=== PATIENT | female | born 1935 | race Caucasian/White ===

== ENCOUNTER → 2021-08-21 09:38 | Outpatient (CLI) | payer MEDICARE, SELFPAY ==
--- NOTE | ~2021-08-21 | XR_ITS ---
EXAMINATION: XR lumbar spine 2-3V EXAM DATE: 08/21/2021 10:12 INDICATION: diffuse low back pain s/p lifting 1 week ago. TECHNIQUE: Lumber spine frontal, lateral, lateral L5-S1 projections for interpretation. There is no prior study for comparison. FINDINGS: There is burst fracture of the L2 vertebral body, mild loss of its height posteriorly and mild to moderate loss centrally and anteriorly. This is new compared to 2016 x-ray. No evidence of si gnificant retropulsion. Could be acute or have acute component. Otherwise the vertebral body heights are maintained. There is moderate to severe loss of the L4-5 and L5-S1 disc height, moderate at L3-4. Moderate mid and lower lumbar facet arthropathy. Sacrum is unremarkable and unchanged in appearance. IMPRESSION: 1. L2 burst fracture, could have acute or subacute component. 2. Moderate to severe lower lumbar disc disease and moderate lumbar facet arthropathy. Reviewed, dictated and finalized at location . ATION CONTROL SPECIALIST IMPRESSION: 1. L2 burst fracture, could have acute or subacute component. 2. Moderate to severe lower lumbar disc disease and moderate lumbar facet arth ropathy.
== END ==
PROVIDERS: PCP Family Medicine; Visit Provider Family Medicine
DX: M51.36 Other intervertebral disc degeneration, lumbar region (principal); S32.021A Stable burst fracture of second lumbar vertebra, initial encounter for closed fracture; X58.XXXA Exposure to other specified factors, initial encounter
CPT/HCPCS: 72100

== ENCOUNTER → 2021-08-30 07:36 | Outpatient (CLI) | payer MEDICARE, SELFPAY ==
--- NOTE | ~2021-08-30 | MR_ITS ---
EXAMINATION: MR lumbar spine wo con DATE: 08/30/2021 08:24 INDICATION: Closed stable burst fracture of second lumbar vertebra. TECHNIQUE: Magnetic resonance imaging (MRI) of the lumbar spine was performed without intravenous con trast. Sequences included sagittal T2-weighted FSE, sagittal T2-weighted FS FSE, sagittal T1-weighted FSE, and axial T2-weighted FSE. COMPARISON: Lumbar spine MRI 12/11/2015, radiographs 08/21/2021 FINDINGS: There is 4 degrees levocurvature of lumbar spine. There is 5 mm anterolisthesis of L4 on L5 and L5 on S1. There is an old healed insufficiency fracture of S2. There is a burst fracture of supe rior endplate of L2 with 1/5 loss of height, retropulsion of bone 3 mm into central spinal canal, and bone marrow edema. There is severely decreased disc height from L3-L4 through L5-S1 with endplate re modeling. The distal spinal cord signal intensity is normal. The conus medullaris is at L2. The follo wing disc levels are specifically discussed: L1-L2: The disc is bulging. There is moderate right and mild left facet joint osteoarthritis. There i s mild bilateral neural foraminal stenosis. There is mild central canal stenosis. L2-L3: The disc is bulging. There is mild bilateral facet joint osteoarthritis. There is mild bilater al neural foraminal stenosis. There is mild central canal stenosis. L3-L4: The disc is bulging and has an annular fissure. There is severe bilateral facet joint osteoart hritis. There is moderate bilateral neural foraminal stenosis. There is mild central canal stenosis. L4-L5: The disc is bulging and has an annular fissure. There is severe bilateral facet joint osteoart hritis. There is moderate bilateral neural foraminal stenosis. There is mild central canal stenosis. L5-S1: The disc is bulging and has an annular fissure. There is severe bilateral facet joint osteoart hritis. There is moderate bilateral neural foraminal stenosis. There is mild central canal stenosis. IMPRESSION: 1. Subacute L2 burst fracture, stable from 08/21/2021. 2. Severe lumbar spondylosis, slightly worsened from 12/11/2015. Reviewed, dictated and finalized at location A. CTURAL RIGGER
== END ==
DX: S32.021A Stable burst fracture of second lumbar vertebra, initial encounter for closed fracture (principal); M47.817 Spondylosis without myelopathy or radiculopathy, lumbosacral region; M48.07 Spinal stenosis, lumbosacral region
CPT/HCPCS: 72148

== ENCOUNTER 2022-07-08 14:40 | Emergency (ER) | payer MEDICARE, SELFPAY ==
--- NOTE | 2022-07-08 14:46 | ED.FEMALEGU ---
HPI - Female Genitourinary General Chief complaint: Urogenital-Female Stated complaint: UTI Time Seen by Provider: 07/08/22 15:09 Source: patient, RN notes reviewed and old records reviewed Mode of arrival: ambulatory Limitations: no limitations History of Present Illness HPI Narrative: 86 year female presents to the [facility] with pain, frequency and urgency of urination since Friday or Friday. Has been taking cranberry pills. Patient called her primary care provider who insisted that she get seen. Patient denies any abdominal pain, fevers, chest pain or shortness of breath. No urinary symptoms today states that she feels fine. Related Data Home Medications Medication Instructions Recorded Confirmed furosemide 20 mg tablet 20 mg DIRECTED 07/08/22 07/08/22 lisinopril 20 mg tablet 20 mg DIRECTED 07/08/22 07/08/22 Allergies Allergy/AdvReac Type Severity Reaction Status Date / Time No Known Allergies Allergy Mild Unverified 05/21/06 13:05 Review of Systems Review of Systems: All systems reviewed & are unremarkable except as noted in HPI and below Constitutional: Constitutional: Reports no additional constitutional complaints Eyes: Eyes: Reports no additional eye complaints ENT: Reports system reviewed and no additional complaints, except as documented Cardiovascular: Cardiovascular: Reports no additional cardiovascular complaints, Denies chest pain and Denies dyspnea Respiratory: Respiratory: Reports no additional respiratory complaints, Denies chest congestion, Denies cough and Denies dyspnea Gastrointestinal: Gastrointestinal: Reports no additional gastrointestinal complaints, Denies abdominal pain, Denies nausea and Denies vomiting Genitourinary: Genitourinary: Reports as per HPI Musculoskeletal: Musculoskeletal: Reports no additional musculoskeletal complaints Integumentary/Breasts: Skin/Breast: Reports system reviewed and no additional complaints, except as docu Neurologic: Reports system reviewed and no additional complaints, except as documented Psychiatric: Psychiatric: Reports no additional psychiatric complaints Allergic/Immunologic: Allergic/Immunologic: Reports no additional allergic/immunologic complaints [facility] Family History Family History Other Family history of arthritis Family history of mental disorder Hypertension Social History Social History Smoking status: Never smoker Alcohol intake: current Comments At the time of my signature, I reviewed and agree with the nursing past medical, surgical, social, and family history. There is no relevant family history pertinent to the patient complaint. Exam Const: General: cooperative, healthy appearing, comfortable, no acute distress, well developed, alert, average body habitus and well nourished Nutritional Appearance: average body habitus and well nourished Orientation/consciousness: patient oriented x3 Limitations: no limitations HENMT: Head: normal to inspection Ears: hearing grossly normal bilaterally and external ears normal Face/Nose/Sinus: Normal external nose present, Normal nares present, Normal nasal mucous membranes and turbinates present and normal facial exam Face and sinus: normal facial exam Mouth: Yes Normal oral and palatal mucosa present, Yes lip normal and Yes moist mucous membranes Throat: posterior oropharynx normal and uvula midline Eyes: General: appearance normal, both eyes and all related structures Alignment and Position: alignment normal Periorbital: periorbital findings normal Conjunctivae: conjunctivae normal Pupils: Equal, round and reactive pupils present EOM: EOMs intact bilaterally Neck: Neck: normal visual inspection, full ROM, no lymphadenopathy and no meningeal signs Chest: Chest palpation & inspection: normal inspection of the chest Resp: Effort & Inspection: normal re
[2022-07-08 14:47] VITALS: BP 160/78; PULSE 100; RESP 18; TEMP 37; O2SAT 99
== END 2022-07-08 15:21 | disposition home or self-care (01) ==
PROVIDERS: Emergency Provider Nurse Practitioner
DX: R30.0 Dysuria (principal); I10 Essential (primary) hypertension
CPT/HCPCS: 81003; 87086; 87088; 99213; G0463

== ENCOUNTER 2022-11-22 14:06 | Emergency (ER) | payer MEDICARE, SELFPAY ==
--- NOTE | ~2022-11-22 | CT_ITS ---
EXAMINATION: CT cervical spine wo con DATE: 11/22/2022 15:29 INDICATION: Fall. Head and neck injury, possible loss of consciousness. TECHNIQUE: Computed tomography (CT) of the cervical spine was performed without intravenous contrast. Automated exposure control and iterative reconstruction technique were employed. Exam dose: 96.32 m Gy-cm total exam DLP. COMPARISON: None FINDINGS: C1 and C2 are normally aligned and the odontoid process is intact. No fracture or dislocati on or locked facet or prevertebral soft tissue swelling is detected. There is moderate degenerative disc disease and approximately 1.6 mm anterolisthesis at C3-4. There is approximately 1.5 mm anterolisthesis at C4-5. There is severe degenerative disc disease at C5-6 and C6-7, with is associated minimal retrolisthesis at each of these levels. Moderately severe degenerative disc disease at C7-T1 and T1-T2. Moderate degenerative disc disease and mild anterolisthesis at T2-3 and T3-4. There is degenerative change at the apophyseal joints throughout the cervical spine. There is mild un covertebral joint spurring at C3-4 and very prominent uncovertebral joint spurring bilaterally at C5- 6 and C6-7. Levoscoliosis of the cervical spine and dextroscoliosis of the upper thoracic spine. IMPRESSION: Severe cervical spondylosis; no fracture or dislocation or locked facet Reviewed, dictated and finalized at Location A. Reviewed, dictated and finalized at location B.
--- NOTE | ~2022-11-22 | CT_ITS ---
EXAMINATION: CT brain wo con DATE: 11/22/2022 15:29 INDICATION: Fall. Head injury on 11/14/2022. Loss of consciousness. TECHNIQUE: Computed tomography (CT) of the head was performed without intravenous contrast. The mA wa s adjusted according to patient size. Iterative reconstruction technique was employed. Exam dose: 60 5.33 mGy-cm total exam DLP. COMPARISON: None FINDINGS: Prominent bilateral carotid siphon and supraclinoid internal carotid artery calcifications. There is nonspecific diminished attenuation of the cerebral white matter, likely due to chronic smal l vessel ischemic changes. There is central and cortical cerebral and cerebellar atrophy. No intracranial mass lesion or hemorrhage or cerebrovascular accident is evident. No midline shift or mass effect. No subdural or epidural hematoma. Polyps or mucous retention cysts, right maxillary sinus. The paranasal sinuses and mastoid air cells are otherwise unremarkable. No fracture or bone destruction of the cranial vault. IMPRESSION: Cerebral atherosclerosis and chronic small vessel ischemic changes of the cerebral white matter Central and cortical cerebral atrophy No skull fracture or acute intracranial finding Reviewed, dictated and finalized at Location A. Reviewed, dictated and finalized at location B.
[2022-11-22 14:15] VITALS: BP 190/95; PULSE 122; RESP 18; TEMP 37.2; O2SAT 100
--- NOTE | 2022-11-22 15:17 | ED.FALL ---
HPI - Fall General Chief Complaint: Fall Stated Complaint: fall Time Seen by Provider: 11/22/22 15:12 History of Present Illness HPI Narrative: Patient presenting here after she fell a week ago, she states that she did hit her head, and she is overall feeling better, except that sometimes when she tilts her head back too far she will get very dizzy. No focal numbness or weakness, difficulty with speech or ambulation. Tried to follow-up with her primary care doctor was sent her to the ER. Related Data Home Medications Medication Instructions Recorded Confirmed furosemide 20 mg tablet 20 mg DIRECTED 07/08/22 07/08/22 lisinopril 20 mg tablet 20 mg DIRECTED 07/08/22 07/08/22 Allergies Allergy/AdvReac Type Severity Reaction Status Date / Time No Known Allergies Allergy Mild Unverified 05/21/06 13:05 Review of Systems Review of Systems: CONST: No fever. HEENT: No sore throat C/V: No chest pain RESP: No cough GI: No nausea : No dysuria. M/S: No joint pain. SKIN: No rash. NEURO: [No headache or focal numbness or weakness] PSYCH: [No depression] ON LICENSE OF [facility] Family History Family History Other Family history of arthritis Family history of mental disorder Hypertension Social History Social History Smoking status: Never smoker Alcohol intake: current Exam Narrative: EXAMINATION OF ORGAN SYSTEMS/BODY AREAS: Constitutional: Vital signs per nursing GENERAL:[No acute distress, non-toxic appearing.] HEAD: Normal with no signs of head trauma. NECK: No C spine tenderness EYES: EOMI, conjunctiva normal ENT: Hearing grossly intact LUNGS: Nonlabored breathing. HEART: [Regular rate and rhythm] ABD: [Soft], [nontender to palpation] EXT: Normal range of motion SKIN: [No rashes or lesions.] NEURO: [Alert and oriented x 3. No gross focal sensory or strength deficits.] Ambulating with normal steady gait PSYCH: Normal affect Course Vital Signs Vital signs: Vital Signs Temperature 99.0 F 11/22/22 14:15 Pulse Rate 122 H 11/22/22 14:15 Respiratory Rate 18 04/21/23 14:15 Blood Pressure 190/95 H 11/22/22 14:15 Pulse Oximetry 100 11/22/22 14:15 Oxygen Delivery Room Air 11/22/22 14:15 Temperature 99.0 F 11/22/22 14:15 Pulse Rate 103 H 11/22/22 16:15 Respiratory Rate 18 11/22/22 16:15 Blood Pressure 190/95 H 11/22/22 14:15 Pulse Oximetry 97 11/22/22 16:15 Oxygen Delivery Room Air 11/22/22 14:15 MDM - Fall MDM Narrative Medical decision making narrative: 87yoF p/w fall 1wk ago, sent here for scans by her PCP; some persistent vertigo though she has had vertigo in the past. Initially tachycardic and hypertensive here but she states that she always has a lot of anxiety when she is at a doctor's office. Normal neurologic exam here, I have low concern for any acute abnormality as it has been a week since the fall however I will obtain a CT head and C-spine for confirmation. These are unremarkable for any acute abnormality. She has no focal numbness or weakness or other focal neurologic signs, her repeat heart rate is 102 with sinus rhythm on telemetry, BP blood pressure 185/102 without any signs of hypertensive emergency. She is excited to go home at this time, I will give her follow-up to neurology given her history of chronic vertigo, she declined any medications as she has had a bad experience with dizzy spells in the past. Strict return precautions provided. Discharge Plan Discharge Clinical Impression: Concussion, Head trauma Patient Disposition: Home, Self-Care Condition: Improved Instructions: Antibiotic Form, Concussion (ED), Head Injury (ED) Additional Instructions: Please follow up with your doctor and the neurologist; you can always return for any further issues. Prescriptions: No Action lisinopril 20 mg tablet 20 mg DIRECTED
[2022-11-22 16:15] VITALS: PULSE 103; RESP 18; O2SAT 97
== END 2022-11-22 16:16 | disposition home or self-care (01) ==
PROVIDERS: Emergency Provider Emergency Medicine; PCP Nurse Practitioner Family
DX: S06.0XAA Concussion with loss of consciousness status unknown, initial encounter (principal); W19.XXXA Unspecified fall, initial encounter
CPT/HCPCS: 70450; 72125; 99284

== ENCOUNTER 2023-10-30 08:53 | Emergency (ER) | payer MEDICARE, SELFPAY ==
[2023-10-30] VITALS (9 sets, daily range): BP systolic 146–174; BP diastolic 80–93; PULSE 94–117; RESP 16–23; TEMP 37.2; O2SAT 83–99
--- NOTE | ~2023-10-30 | XR_ITS ---
EXAMINATION: XR chest 1V portable INDICATION: Shortness of breath TECHNIQUE: Portable AP chest at 1041 hours COMPARISON: None available FINDINGS: The lungs are free of acute opacities. No pleural effusion or pneumothorax. The cardiomedia stinal silhouette is normal. Vertebroplasty changes noted at L2. IMPRESSION: 1. No acute cardiopulmonary abnormality. Reviewed, dictated and finalized at location F.
--- NOTE | ~2023-10-30 | CT_ITS ---
EXAMINATION: CT abdomen pelvis w con DATE: 10/30/2023 11:02 INDICATION: Epigastric abdominal pain. TECHNIQUE: Computed tomography (CT) of the abdomen and pelvis was performed with 100 mL Omnipaque 350 intravenous contrast. Automated exposure control and iterative reconstruction technique were employe d. The dose-length product was 179.89 mGy-cm. COMPARISON: Pelvis CT 12/10/15 FINDINGS: The visualized portions of the lung bases demonstrate mild atelectasis. No pleural effusion . The heart size is normal. No pericardial effusion. The liver, gallbladder, spleen, pancreas, adrena l glands, are normal. There are cysts in the kidneys measuring up to 1.6 cm on the right. Aortic athe rosclerosis is noted. There are no dilated loops of bowel. The appendix is not visualized. There is a large volume of stool in the colon. There are no pathologically enlarged lymph nodes. There is no fr ee intraperitoneal fluid. There is an old healed fracture of left parasymphyseal pubis. There is a ch ronic burst fracture of L2 with changes of vertebroplasty. There is severe lumbar spondylosis. There is an old fracture of S2 segment. IMPRESSION: 1. No etiology for the patient's symptoms. Reviewed, dictated and finalized at location A.
--- NOTE | 2023-10-30 09:00 | ECG_ITS ---
Measurements Intervals [place] Rate: 99 P: 53 SD: 180 QRS: 36 QRSD: 85 T: 26 QT: 329 QTc: 424 Interpretive Statements SINUS RHYTHM WITH SINUS ARRHYTHMIA MINIMAL Q WAVES- INFERIOR LEADS BASELINE ARTIFACT- I, II, III, AVL BORDERLINE ECG NO PREVIOUS ECG AVAILABLE FOR COMPARISON Electronically Signed On 10-30-2023 9:37:01 CDT by Lon Turner D.O.
[2023-10-30 09:28] LABS: Basophils Percent Auto 0.4 % (0.2-1.2); Eosinophils Percent Auto 0.3 % (0-4.4); Hematocrit 34.5 % (37.0-47.0); Hemoglobin 11.7 g/dL (12.0-15.0); Immature Granulocyte Absolute 0.04 K/mm3 (0.00-0.031); Immature Granulocyte Percent A 0.5 % (0-0.5); Lymphocytes Absolute Auto 0.48 K/mm3 (0.9-3.2); Lymphocytes Percent Auto 6.4 % (18.3-44.2); Mean Corpuscular HGB Conc 33.9 g/dl (32-36); Mean Corpuscular Hemoglobin 29.6 pg (26-34); Mean Corpuscular Volume 87.3 fl (80-100); Monocytes Absolute Auto 0.6 K/mm3 (0.1-0.6); Monocytes Percent Auto 8.6 % (2.6-8.5); Neutrophils Absolute Auto 6.3 K/mm3 (1.3-6.7); Neutrophils Percent Auto 83.8 % (45.5-73.1); Platelet Count Result 193 k/mm3 (150-375); Red Blood Count 3.95 M/mm3 (4.2-5.4); White Blood Count 7.5 K/mm3 (4.5-10.0)
[2023-10-30 09:38] LABS: Alanine Aminotransferase 23 U/L (6-35); Albumin Level 4.3 g/dL (3.5-5.1); Alkaline Phosphatase 72 U/L (38-126); Anion Gap 6 mmol/L (4-12); Aspartate Amino Transferase 35 U/L (14-36); Bilirubin,Total 0.6 mg/dL (0.2-1.3); Blood Urea Nitrogen 19 mg/dL (7-17); Calcium 9.5 mg/dL (8.4-10.2); Carbon Dioxide 26 mmol/L (22-30); Chloride 97 mmol/L (98-107); Estimated Glomerular Filt Rate 47; Glucose 114 mg/dL (65-110); Lipase 45 U/L (23-300); Potassium 3.6 mmol/L (3.4-5.0); Sodium 129 mmol/L (137-145)
--- NOTE | 2023-10-30 10:27 | ED.ABDPAIN ---
HPI - Abdominal Pain General Chief Complaint: Abdominal Pain Stated Complaint: left shoulder pain since , upper abd pain Time Seen by Provider: 10/30/23 10:25 Source: patient and family (Daughter Viviana) Mode of arrival: ambulatory Limitations: no limitations History of Present Illness HPI narrative: 88-year-old female presents with upper abdominal pain. Patient points across her upper abdomen from right upper quadrant epigastrium to left upper quadrant. She states it radiates to her back. This has never happened before. She was also having some left shoulder pain starting on Friday. She is experiencing some pain with inspiration. Initial triage complaint noted that she was having some intermittent shortness of breath but patient denies this when I ask her explicitly.. She did have a brief syncopal episode last night when going to the bathroom. She had gone to the toilet and when she stood she lost muscle tone and consciousness briefly. She awoke and was back to baseline and went back to bed. No chest pain. She did get her shingles shot on Friday. Related Data Home Medications Medication Instructions Recorded Confirmed furosemide 20 mg tablet 20 mg DIRECTED 07/08/22 07/08/22 lisinopril 20 mg tablet 20 mg DIRECTED 07/08/22 07/08/22 Allergies Allergy/AdvReac Type Severity Reaction Status Date / Time No Known Allergies Allergy Mild Unverified 05/21/06 13:05 [facility] Surgical History Surgical History (Updated 10/31/23 @ 18:12 by Kindra Cowan MD) History of appendectomy History of hysterectomy Family History Family History Other Family history of arthritis Family history of mental disorder Hypertension Social History Social History Smoking status: Never smoker Alcohol intake: current Exam Narrative: GENERAL: Well-appearing, well-nourished, and in no acute distress. HEAD: Normocephalic, atraumatic. EYES: Non injected, non icteric ENT: Nares clear, no rhinorrhea or epistaxis. NECK: Supple. CHEST: Speaking in full sentences. No respiratory distress. Non labored. HEART: Regular rate and rhythm. . ABDOMEN: Soft, nondistended. Non tender to palpation. No rigidity/guarding. Cardoza sign negative. EXTREMITIES: Normal range of motion. No edema. SKIN: Warm, dry, no rash. NEURO: No focal deficits. Alert and oriented. PSYCH: Normal mood and affect. Course Vital Signs Vital signs: Vital Signs Temperature 98.9 F 10/30/23 08:59 Pulse Rate 94 10/30/23 08:59 Respiratory Rate 16 10/30/23 08:59 Blood Pressure 171/83 H 10/30/23 08:59 Pulse Oximetry 96 10/30/23 08:59 Temperature 98.9 F 10/30/23 08:59 Pulse Rate 117 H 10/30/23 11:06 Respiratory Rate 18 10/30/23 11:06 Blood Pressure 174/87 H 10/30/23 11:06 Pulse Oximetry 93 10/30/23 11:06 MDM - Abdominal Pain MDM Narrative Medical decision making narrative: Patient presents with upper abdominal pain. She points to right upper quadrant, epigastrium, left upper quadrant. She notes it radiates to her back. Also had a syncopal episode last night after going to the bathroom when she stood up from the toilet. Brief loss of consciousness and muscle tone with return to baseline. In the ED she is afebrile with vital signs that show hypertension. Work up largely unremarkable. No comment in impression but rest of interpretation does note stool burden and on my independent interpretation I do appreciate his stool burden especially in the transverse colon which correlates with patient's complaints. We did discuss bowel regimen and the importance of a stool softener as well as occasionally a laxative for episodes of constipation and the differences between the 2. Patient her daughter verifies understanding. Patient is otherwise low risk based on Wirt syncope rule and we discussed this
[2023-10-30] MEDS: MORPHINE SULFATE (*CRX) 2 MG/ML INJ IV PUSH (10:49)
[2023-10-30] MEDS: SODIUM CHLORIDE 0.9% IV 1,000 ML 999 ML IV CONT (10:50)
[2023-10-30 11:07] LABS: Add Urine Microscopic? NO; Color Urine Yellow (Yellow)
[2023-10-30 11:08] LABS: Appearance Urine Clear (Clear); Bilirubin Urine Negative (Negative); Blood Urine Negative (Negative); Glucose Urine UA Negative (Negative); Ketones Urine 1+ mg/dL (Negative); Leukocyte Esterase Ur Negative LEU/UL (Negative); Nitrate Urine Negative (Negative); Protein Urine Negative (Negative); Urobilinogen Urine 0.2 mg/dL (<2.0); pH Urine 5.5 (5.0-9.0)
[2023-10-30 11:31] LABS: Troponin I < 0.012 ng/mL (0.000-0.034)
[2023-10-30] MEDS: ACETAMINOPHEN 325 MG TABLET 650 MG PO (12:56)
[2023-10-30] MEDS: DICYCLOMINE HCL 10 MG CAPSULE PO (12:57)
[2023-10-30] MEDS: PSYLLIUM POWDER PACKET 1 PACKET PO (12:57)
== END 2023-10-30 13:13 | disposition home or self-care (01) ==
PROVIDERS: Emergency Provider Student in an Organized Health Care Education/Training Program; PCP Nurse Practitioner Family
DX: K59.00 Constipation, unspecified (principal); D64.9 Anemia, unspecified; N17.9 Acute kidney failure, unspecified; E87.1 Hypo-osmolality and hyponatremia; R55 Syncope and collapse; Z90.710 Acquired absence of both cervix and uterus
CPT/HCPCS: 36415; 71045; 74177; 80053; 81003; 83690; 84484; 85025; 93005; 96361; 96374; 99284; A9270; J2270; J7030; Q9967

== ENCOUNTER 2023-11-03 08:37 | Inpatient (IN) | payer MEDICARE, SELFPAY ==
[2023-11-03] VITALS (34 sets, daily range): BP systolic 116–175; BP diastolic 68–97; PULSE 93–126; RESP 13–26; TEMP 36.6–36.7; O2SAT 91–100; BMI 22.4
--- NOTE | ~2023-11-03 | CT_ITS ---
Clinical Indication: Chest and abdominal pain CT Scan of the Chest, Abdomen, and Pelvis with Contrast: Technique: Contiguous sections were acquired throughout the chest, abdomen, and pelvis after intraven ous administration of 100 cc of Omnipaque 350. Dose reduction technique was used on this scan by stefanie stafford automated exposure control and iterative reconstruction technique. The dose-length product (DL P) was 302.81 mGy-cm. COMPARISON: 10/30/2023 Findings: There is no evidence of any significant mediastinal, hilar or axillary lymphadenopathy. There is no a ortic aneurysm or dissection. No pulmonary embolus seen. There are atherosclerotic calcifications of the aorta.. There is no evidence of pleural or pericardial effusion. The lungs are clear. No pulmonary nodules or infiltrates are noted. The liver, spleen, pancreas, gallbladder, adrenals and kidneys are within normal limits. No evidence of aortic aneurysm. No lymphadenopathy. No bowel obstruction or bowel wall thickening. There is no evidence to suggest acute appendicitis. Urinary bladder is unremarkable. No pelvic mass seen. No ascites. Compression fracture of T8 present. There is vertebroplasty at L2. Impression: T8 compression fracture, somewhat age indeterminate. No other significant/acute abnormality seen. Reviewed, dictated and finalized at [facility]. Impression: T8 compression fracture, somewhat age indeterminate. No other significant/acute abnormality seen.
--- NOTE | ~2023-11-03 | XR_ITS ---
EXAMINATION: XR chest 1V portable DATE: 11/03/2023 12:31 INDICATION: Left shoulder and back pain. TECHNIQUE: A single frontal view of the chest was obtained. COMPARISON: Chest single view 10/30/2023 FINDINGS: There is mild atelectasis in left lower lung zone. No pleural effusion or pneumothorax. The heart size is normal. IMPRESSION: 1. Mild atelectasis in left lower lung zone. Reviewed, dictated and finalized at location A.
--- NOTE | 2023-11-03 12:00 | ED.BACK ---
HPI - Back Pain/Injury General Chief Complaint: Back Pain/Injury Stated Complaint: upper back pain, pain w/ inspiration Time Seen by Provider: 11/03/23 11:57 Source: patient and family ( Son) Mode of arrival: ambulatory Limitations: no limitations History of Present Illness HPI Narrative: patient presents with pain in multiple areas. She has complaining of pain throughout her back and left shoulder as well as to her left buttock. She is also having pain with inspiration. She continues to have pain across her upper abdomen. Of note patient was seen by myself earlier in the week for similar symptoms although she states that some are new and or worsening. She was diagnosed with constipation at that time based on stool burden seen on CT abdomen pelvis. She states she continues to have pain but feels less distended there and has had 3 bowel movements since including 1 today. She said they have been good. No fevers. She continues to feel nauseated. No chest pain. No paresthesias in extremities. patient's symptoms have been going on since nearly a week ago, on Friday which she received her shingles vaccine. Related Data Home Medications Medication Instructions Recorded Confirmed furosemide 20 mg tablet 20 mg PO DAILY 07/08/22 11/03/23 lisinopril 20 mg tablet 20 mg PO DAILY 07/08/22 11/03/23 cholecalciferol (vitamin D3) 25 1,000 unit PO DAILY 11/03/23 11/03/23 mcg (1,000 unit) capsule clobetasol 0.05 % topical ointment 1 applic topical BID PRN maceration 11/03/23 11/03/23 coQ10 (ubiquinol) 100 mg capsule 100 mg PO DAILY 11/03/23 11/03/23 multivitamin with minerals-folic 1 tablet PO DAILY 11/03/23 11/03/23 acid 0.4 mg tablet (One-A-Day Women's 50 Plus) polyethylene glycol 1 ea miscellaneous DAILY 11/03/23 11/03/23 Allergies Allergy/AdvReac Type Severity Reaction Status Date / Time grass pollen Allergy Sneezing Verified 11/03/23 17:58 house dust Allergy Sneezing Verified 11/03/23 17:58 codeine AdvReac Intermediate Confusion Verified 11/03/23 17:58 [facility] Past Medical History Medical History (Updated 11/03/23 @ 23:00 by Mary Kim PA-C) Hyperlipidemia Hypertension Osteoarthritis Uterine cancer Surgical History Surgical History (Updated 11/03/23 @ 22:57 by Mary Kim PA-C) History of appendectomy History of cataract extraction History of colonoscopy with polypectomy History of hysterectomy Family History Family History Other Family history of arthritis Family history of mental disorder Hypertension Social History Social History (Updated 11/03/23 @ 22:58 by Mary Kim PA-C) Social History: Surrogate medical decision maker: Zahraa Oneill, daughter. Code status: Full code. Smoking status: Never smoker Alcohol intake: never Substance use: never Do You Feel Safe in your Home?: Yes Lack of Transportation: No Lack of Food: Never True Current Housing: I Have Housing Concerned About Future Housing: No Difficulty Paying Gas/Electric Bills: No Difficulty Paying for Meds: No Currently Unemployed: No Education: High School Diploma/GED Difficulty w/ Childcare or Family Care: No Additional living arrangements comments: The patient lives in her own home with her dog Adriana. [place] [address] [place] Additional occupation/education comments: Retired. Spiritual care concerns: No Exam Narrative: GENERAL: Well-appearing, well-nourished, in occasional acute distress. HEAD: Normocephalic, atraumatic. EYES: Non injected, non icteric ENT: Nares clear, no rhinorrhea or epistaxis. NECK: Supple. CHEST: Speaking in full sentences. No respiratory distress. HEART: Regular rate and rhythm at the time of exam . ABDOMEN: Soft, nondistended. Non tender to palpation. EXTREMITIES: Normal range of motion. No edema. Straight leg test negative bilaterally. SKIN: Warm, dry, no rash. NEURO: No focal defi
--- NOTE | 2023-11-03 12:13 | ECG_ITS ---
Measurements Intervals [place] Rate: 98 P: 44 AR: 180 QRS: 37 QRSD: 87 T: 20 QT: 340 QTc: 434 Interpretive Statements SINUS RHYTHM WITH SINUS ARRHYTHMIA NORMAL ELECTROCARDIOGRAM COMPARED TO ECG 10/30/2023 09:13:27 NO SIGNIFICANT CHANGES Electronically Signed On 11-03-2023 13:20:14 CDT by Luis Yañez M.D.
[2023-11-03] MEDS: MORPHINE SULFATE (*CRX) 2 MG/ML INJ IV PUSH (12:35)
[2023-11-03] MEDS: ONDANSETRON INJ 4 MG/2 ML VIAL IV PUSH (12:35)
[2023-11-03 12:44] LABS: Basophils Percent Auto 0.5 % (0.2-1.2); Eosinophils Percent Auto 0.4 % (0-4.4); Hematocrit 34.2 % (37.0-47.0); Hemoglobin 11.6 g/dL (12.0-15.0); Immature Granulocyte Absolute 0.06 K/mm3 (0.00-0.031); Immature Granulocyte Percent A 0.8 % (0-0.5); Lymphocytes Absolute Auto 0.93 K/mm3 (0.9-3.2); Lymphocytes Percent Auto 12.6 % (18.3-44.2); Mean Corpuscular HGB Conc 33.9 g/dl (32-36); Mean Corpuscular Hemoglobin 28.9 pg (26-34); Mean Corpuscular Volume 85.1 fl (80-100); Mean Platelet Volume 7.9 fl (7.4-10.4); Monocytes Absolute Auto 0.7 K/mm3 (0.1-0.6); Monocytes Percent Auto 9.9 % (2.6-8.5); Neutrophils Absolute Auto 5.6 K/mm3 (1.3-6.7); Neutrophils Percent Auto 75.8 % (45.5-73.1); Platelet Count Result 273 k/mm3 (150-375); Red Blood Count 4.02 M/mm3 (4.2-5.4); Red Cell Distribution Width 12.4 % (11.5-14.5); White Blood Count 7.4 K/mm3 (4.5-10.0)
[2023-11-03 12:53] LABS: Alanine Aminotransferase 20 U/L (6-35); Alkaline Phosphatase 67 U/L (38-126); Anion Gap 6 mmol/L (4-12); Aspartate Amino Transferase 32 U/L (14-36); Bilirubin,Total 0.7 mg/dL (0.2-1.3); Blood Urea Nitrogen 15 mg/dL (7-17); Calcium 9.5 mg/dL (8.4-10.2); Carbon Dioxide 28 mmol/L (22-30); Chloride 93 mmol/L (98-107); Creatine Kinase 57 U/L (30-135); Estimated Glomerular Filt Rate 59; Glucose 108 mg/dL (65-110); Magnesium 2.1 mg/dL (1.6-2.3); Potassium 3.3 mmol/L (3.4-5.0); Sodium 127 mmol/L (137-145)
[2023-11-03 13:08] LABS: D Dimer 2.79 ug/mL (<0.48)
[2023-11-03 13:38] LABS: Appearance Urine Clear (Clear); Bilirubin Urine Negative (Negative); Blood Urine Negative (Negative); Color Urine Yellow (Yellow); Glucose Urine UA Negative (Negative); Ketones Urine Negative (Negative); Leukocyte Esterase Ur Negative LEU/UL (Negative); Nitrate Urine Negative (Negative); Protein Urine Negative (Negative); Specific Grav Ur 1.013 (1.001-1.035); Urobilinogen Urine 0.2 mg/dL (<2.0)
[2023-11-03 13:51] LABS: Add Urine Microscopic? NO
[2023-11-03 14:12] LABS: Influenza A QL RT-PCR Negative (Negative); Influenza B QL RT-PCR Negative (Negative); RSV RNA, RT-PCR Negative (Negative); SARS-CoV-2 RNA PCR Negative (Negative)
[2023-11-03] MEDS: POTASSIUM BICARBONATE 25 MEQ TABEF PO (14:30)
[2023-11-03 14:32] LABS: Creatinine Urine 27.2 mg/dL
[2023-11-03 14:33] LABS: Sodium Urine Random 36 meq/L
--- NOTE | 2023-11-03 15:59 | PM.IMHP ---
H&P: HPI History of Present Illness Date/Time: 11/03/23 18:45 Chief Complaint: Back pain. Narrative: This is a very pleasant 88-year-old female with history of compression fracture, osteoarthritis, hypertension, and hyperlipidemia who presented to the emergency department for evaluation of back pain. The patient provides the following history. Last Friday she got the shingles vaccination and the following morning she woke up with chills, fever, and body aches. Since that time she has had ?a deep and aching pain? diffusely throughout her lower mid back and radiating around the ribs in the front. The pain is worse with movement and deep inspiration and sometimes takes her breath away and it sounds like she had a brief syncopal episode related to pain last week. She has been taking acetaminophen and ibuprofen at home with some relief. She has also been using a heating pad. This does not feel like her arthritic pain whatsoever. She denies recent fall, injury, current fever, headache, chest pain, pleuritic pain, cough, vomiting, diarrhea, and dysuria. No known history of gallbladder disease, pancreatitis, or peptic ulcers. She was seen in the ED for the symptoms on 10/30/2023 at which time her workup was largely unremarkable. She was discharged home for follow-up with her primary care provider. Today she called to make an appointment but due to ongoing symptoms she was instead referred back to the emergency department. In the ED: She was afebrile on arrival with stable vital signs. Labs were significant for sodium of 127, chloride 93, potassium 3.3, BUN 15, creatinine 0.90, WBC 7.4, hemoglobin 11.6. Urinalysis was unremarkable. She tested negative for influenza, RSV, and COVID. CT of the chest, abdomen, and pelvis showed T8 compression fracture, some a age-indeterminate, but no other significant abnormalities. She is being admitted in this setting for further workup. Review of Systems Review of Systems: Twelve systems were reviewed and are negative except for as per HPI. [facility] Past Medical History Medical History (Updated 11/03/23 @ 23:00 by Mary Kim PA-C) Hyperlipidemia Hypertension Osteoarthritis Uterine cancer Surgical History Surgical History (Updated 11/03/23 @ 22:57 by Mary Kim PA-C) History of appendectomy History of cataract extraction History of colonoscopy with polypectomy History of hysterectomy Family History Family History Other Family history of arthritis Family history of mental disorder Hypertension Social History Social History (Updated 11/03/23 @ 22:58 by Mary Kim PA-C) Social History: Surrogate medical decision maker: Zahraa Oneill, daughter. Code status: Full code. Smoking status: Never smoker Alcohol intake: never Substance use: never Do You Feel Safe in your Home?: Yes Lack of Transportation: No Lack of Food: Never True Current Housing: I Have Housing Concerned About Future Housing: No Difficulty Paying Gas/Electric Bills: No Difficulty Paying for Meds: No Currently Unemployed: No Education: High School Diploma/GED Difficulty w/ Childcare or Family Care: No Additional living arrangements comments: The patient lives in her own home with her dog Adriana. [place] [address] Additional occupation/education comments: Retired. Spiritual care concerns: No Meds Home Medications and Allergies Home Medications Medication Instructions Recorded Confirmed Type furosemide 20 mg tablet 20 mg PO DAILY 07/08/22 11/03/23 History lisinopril 20 mg tablet 20 mg PO DAILY 07/08/22 11/03/23 History psyllium husk 0.4 gram capsule 0.4 g PO DAILY PRN constipation 30 10/30/23 11/03/23 Rx (Metamucil) days #30 caps cholecalciferol (vitamin D3) 25 1,000 unit PO DAILY 11/03/23 11/03/23 History mcg (1,000 unit) capsule clobetasol 0.05 % topical ointment 1 applic topical BID PRN macerati
[2023-11-03] MEDS: ACETAMINOPHEN 325 MG TABLET 650 MG PO ×2 (17:12→21:10)
[2023-11-03] MEDS: IBUPROFEN 600 MG TABLET PO (22:56)
[2023-11-03 23:20] LABS: Lipase 54 U/L (23-300); Magnesium 2.2 mg/dL (1.6-2.3)
[2023-11-03] MEDS: SODIUM CHLORIDE 0.9% IV 1,000 ML 80 ML IV CONT (23:44)
[2023-11-04] VITALS (7 sets, daily range): BP systolic 123–174; BP diastolic 64–88; PULSE 75–97; RESP 16–18; TEMP 36.6–37.2; O2SAT 95–96
[2023-11-04 00:14] LABS: Creatinine Urine 149.6 mg/dL; Urea Random Urine 436 MG/DL
[2023-11-04 00:24] LABS: Sodium Urine Random 11 meq/L
[2023-11-04 01:11] LABS: Anion Gap 4 mmol/L (4-12); Blood Urea Nitrogen 21 mg/dL (7-17); Calcium 9.5 mg/dL (8.4-10.2); Carbon Dioxide 30 mmol/L (22-30); Chloride 95 mmol/L (98-107); Estimated Glomerular Filt Rate 42; Glucose 110 mg/dL (65-110); Potassium 3.9 mmol/L (3.4-5.0); Sodium 129 mmol/L (137-145)
[2023-11-04] MEDS: ACETAMINOPHEN 325 MG TABLET 650 MG PO ×2 (06:46→18:23)
[2023-11-04 09:05] LABS: Hematocrit 32.1 % (37.0-47.0); Hemoglobin 11.1 g/dL (12.0-15.0); Mean Corpuscular HGB Conc 34.6 g/dl (32-36); Mean Corpuscular Hemoglobin 29.6 pg (26-34); Mean Corpuscular Volume 85.6 fl (80-100); Mean Platelet Volume 7.8 fl (7.4-10.4); Platelet Count Result 275 k/mm3 (150-375); Red Blood Count 3.75 M/mm3 (4.2-5.4); Red Cell Distribution Width 12.8 % (11.5-14.5); White Blood Count 6.4 K/mm3 (4.5-10.0)
[2023-11-04 09:19] LABS: Albumin Level 3.7 g/dL (3.5-5.1); Anion Gap 4 mmol/L (4-12); Blood Urea Nitrogen 16 mg/dL (7-17); Carbon Dioxide 29 mmol/L (22-30); Chloride 98 mmol/L (98-107); Estimated Glomerular Filt Rate 59; Glucose 134 mg/dL (65-110); Magnesium 2.2 mg/dL (1.6-2.3); Potassium 3.7 mmol/L (3.4-5.0); Sodium 131 mmol/L (137-145)
[2023-11-04] MEDS: polyethylene glycoL 3350 17 GM POWD.PACK PO (09:21)
[2023-11-04] MEDS: THERAPEUTIC MULTIVITAMINS/MINERALS TAB (*BKC) 1 TABLET PO (09:21)
[2023-11-04] MEDS: CHOLECALCIFEROL 1,000 UNITS TABLET 1000 UNITS PO (09:22)
[2023-11-04] MEDS: lisinopriL 20 MG TABLET PO (09:22)
[2023-11-04] MEDS: FUROSEMIDE 20 MG TABLET PO (11:23)
--- NOTE | 2023-11-04 11:26 | PM.IMPN ---
Progress Note: A&P Assessment and Plan (1) Compression fracture of T8 vertebra: Qualifiers: Encounter type: sequela Qualified Code(s): S22.060S - Wedge compression fracture of T7-T8 vertebra, sequela Code(s): S22.060A - Wedge compression fracture of T7-T8 vertebra, initial encounter for closed fracture Status: Acute Assessment and Plan: Consult Neurosurgery. Pain control. 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 She did receive some gentle IV hydration saline is completed. Recheck labs in the morning. Patient may need fluid restriction or salt tabs depending on trajectory. (3) Hypokalemia: Code(s): E87.6 - Hypokalemia Status: Acute Assessment and Plan: Official potassium 3.3 on admission, was replaced and is 3.7 today. (4) Hypertension: Code(s): I10 - Essential (primary) hypertension Status: Acute Assessment and Plan: Chronic hypertension, continue home home antihypertensives. Blood pressure was elevated this morning and has responded after medication. (5) Osteoarthritis: Code(s): M19.90 - Unspecified osteoarthritis, unspecified site Status: Acute Time Spent With Patient Time with patient: 25 - 35 minutes Subjective Date/time seen: 11/04/23 11:26 Interval history: Patient reports that she has mid back pain radiating to the left side of the abdomen as well as down the leg. She had previously had constipation that had started to subside. Family reports that patient had a syncopal episode and was found on the bathroom floor about a week ago. It is suspected that she suffered a T8 fracture at that time and has been dealing with pain ever since. She had previously come to the emergency department been diagnosed with constipation and sent back home. She returned to the ER yesterday with worsening pain found hyponatremia as low as 127 not previously worked up. Today sodium is 131. Requested Neurosurgery consult due to apparent new T8 fracture. Review of Systems Review of Systems: All systems reviewed & are unremarkable except as noted in HPI and below Exam Narrative: General: Well-developed, nontoxic-appearing elderly female in the semi-Layton position in bed. Weight: 47 kg. BMI: 22.4. HEENT: Normocephalic, atraumatic. PERRL, EOMI. Sclera anicteric. Tacky mucous membranes. Neck: Supple. Respiratory: Lungs are clear to auscultation bilaterally. Cardiovascular: Regular rate and rhythm with S1-S2. Soft systolic murmur at the upper sternal border. Chest: Mild tenderness to palpation over the left lower ribs anteriorly. Gastrointestinal: Abdomen is soft and nondistended with positive bowel sounds. Tender to deeper palpation in the left upper quadrant. No guarding or rebound tenderness. Skin: Warm and dry. No rash or lesions noted. Spine: No midline vertebral tenderness. Some tenderness to palpation over the right mid/lateral back. Extremities: No cyanosis, clubbing, or edema. Radial and pedal pulses intact. Neurological: Alert and oriented. Cranial nerves 2-12 are grossly intact. No gross focal deficits to casual conversation. Psychiatric: Pleasant and cooperative with normal mood and affect. Judgment and insight intact. Objective Data Vital Signs Vital Signs: Vital Signs - 24 hr 11/03/23 11:30 11/03/23 11:45 11/03/23 12:00 Temperature Pulse Rate 100 93 95 Respiratory Rate 18 21 H 26 H Blood Pressure Pulse Oximetry 98 98 97 Oxygen Delivery 11/03/23 12:15 11/03/23 12:30 11/03/23 12:36 Temperature Pulse Rate 97 102 H 96 Respiratory Rate 21 H 17 20 Blood Pressure 175/94 H Pulse Oximetry 96 98 95 Oxygen Delivery 11/03/23 12:45 11/03/23 12:46 11/03/23 13:00 Temperature Pulse Rate 97 98 96 Respiratory Rate 13 15 14 Blood Pressure 153/81 H Puls
--- NOTE | 2023-11-04 15:06 | PCCCNOTE ---
On 11/04/23, the student, Almaz Vasquez, provided care and completed [facility] documentation on this patient. I have reviewed the student's documentation and agree with the findings.
[2023-11-04] MEDS: CALCIUM CARBONATE (TUMS) 500 MG (200 MG ELEMENTAL) PO (17:43)
[2023-11-04] MEDS: IBUPROFEN 200 MG TABLET PO (18:23)
--- NOTE | 2023-11-04 18:36 | PHAR ---
HOME MED: KETOTIFEN OPTHALMIC SOLUTION 0.035%, ADMINISTER ONE DROP IN TO EACH EYE TWO TIMES DAILY, VERIFIED IN PHARMACY 11/04/2023 @ 1971
[2023-11-05] MEDS: ACETAMINOPHEN 325 MG TABLET 650 MG PO ×4 (02:10→17:24)
[2023-11-05] MEDS: IBUPROFEN 200 MG TABLET PO ×2 (02:11→07:56)
[2023-11-05 05:25] LABS: Basophils Absolute Auto 0.1 K/mm3 (0.0-0.1); Eosinophils Absolute Auto 0.2 K/mm3 (0-0.3); Eosinophils Percent Auto 3.1 % (0-4.4); Hematocrit 35.5 % (37.0-47.0); Immature Granulocyte Absolute 0.08 K/mm3 (0.00-0.031); Immature Granulocyte Percent A 1.2 % (0-0.5); Lymphocytes Absolute Auto 1.17 K/mm3 (0.9-3.2); Lymphocytes Percent Auto 17.4 % (18.3-44.2); Mean Corpuscular HGB Conc 33.8 g/dl (32-36); Mean Corpuscular Hemoglobin 29.5 pg (26-34); Mean Corpuscular Volume 87.2 fl (80-100); Mean Platelet Volume 8.1 fl (7.4-10.4); Monocytes Absolute Auto 0.6 K/mm3 (0.1-0.6); Monocytes Percent Auto 8.9 % (2.6-8.5); Neutrophils Absolute Auto 4.6 K/mm3 (1.3-6.7); Neutrophils Percent Auto 68.4 % (45.5-73.1); Platelet Count Result 340 k/mm3 (150-375); Red Blood Count 4.07 M/mm3 (4.2-5.4); Red Cell Distribution Width 12.8 % (11.5-14.5); White Blood Count 6.7 K/mm3 (4.5-10.0)
[2023-11-05 05:42] LABS: Alanine Aminotransferase 24 U/L (6-35); Albumin Level 4.1 g/dL (3.5-5.1); Alkaline Phosphatase 89 U/L (38-126); Anion Gap 2 mmol/L (4-12); Aspartate Amino Transferase 44 U/L (14-36); Bilirubin,Total 0.7 mg/dL (0.2-1.3); Blood Urea Nitrogen 11 mg/dL (7-17); Calcium 9.7 mg/dL (8.4-10.2); Carbon Dioxide 33 mmol/L (22-30); Chloride 97 mmol/L (98-107); Estimated Glomerular Filt Rate > 60; Glucose 110 mg/dL (65-110); Magnesium 2.2 mg/dL (1.6-2.3); Potassium 3.5 mmol/L (3.4-5.0); Sodium 132 mmol/L (137-145)
[2023-11-05 06:00] VITALS: BP 170/95; PULSE 94; RESP 16; TEMP 36.6; O2SAT 98
--- NOTE | 2023-11-05 07:23 | PM.IMPN ---
Progress Note: A&P Assessment and Plan (1) Compression fracture of T8 vertebra: Qualifiers: Encounter type: sequela Qualified Code(s): S22.060S - Wedge compression fracture of T7-T8 vertebra, sequela Code(s): S22.060A - Wedge compression fracture of T7-T8 vertebra, initial encounter for closed fracture Status: Acute Assessment and Plan: Consult Neurosurgery. Pain control. 4/3: Tylenol 650 mg q 4 hours prn Increased Ibuprofen from 200 mg to 600 mg q 6 hours prn Add Lidoderm patch TLSO brace at bedside to be used when up and out of bed PT/OT consulted and rec's appreciated for placement Patient reports falling in the bathroom recently which is likely cause of the fracture. Sounds like she had a vasovagal syncope. 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 She did receive some gentle IV hydration saline is completed. Recheck labs in the morning. Patient may need fluid restriction or salt tabs depending on trajectory. 4/3: Na 132 today Monitor BMP daily (3) Hypokalemia: Code(s): E87.6 - Hypokalemia Status: Acute Assessment and Plan: Official potassium 3.3 on admission, was replaced and is 3.7 today. 4/3:K 3.5. Replaced with K+ 40 meq x 1 (4) Hypertension: Code(s): I10 - Essential (primary) hypertension Status: Acute Assessment and Plan: Chronic hypertension, continue home home antihypertensives. Blood pressure was elevated this morning and has responded after medication. 4/3: SBP ranging 140-170's. Continue home anti-hypertensives Likely elevated 2/2 pain. Hopefully will decrease with adjustments to pain regimen. (5) Osteoarthritis: Code(s): M19.90 - Unspecified osteoarthritis, unspecified site Status: Acute Assessment and Plan: Would recommend DEXA scan as an outpatient Continue cholecalciferol 1000 units daily Add calcium 600 mg PO daily with meals Plan Feeding:regular diet Analgesia: Tylenol and ibuprofen + lidoderm Thromboembolic prophylaxis: scd Ulcer prophylaxis: na Glycemic control: na Bowel regimen: miralax Lines: PIV Antibiotics: na Disposition: care coordination assisting with placement. PT/OT consults pending. Subjective Date/time seen: 11/05/23 07:23 Interval history: This is a very pleasant 88-year-old female with history of compression fracture, osteoarthritis, hypertension, and hyperlipidemia who presented to the emergency department for evaluation of back pain. Please see remainder of the H&P for further details. Interval history: 11/05/23: Patient is seen sitting up in bed in no acute distress. She is pleasant and feels better today because she was able to get washed up and brush her teeth. She still complains of mid-back pain that travels around her back and into her abdomen. She is taking tylenol and ibuprofen for pain control and she feels this is helping enough to allow her to work with therapy. She is hesitant to titrate up on her pain medication as she is very sensitive to medications. She reports her last bowel movement was 3 days ago but she has been receiving a bowel regimen and is passing flatus. She is scheduled to be evaluated by PT and OT today and anticipate needing placement at discharge. She is agreeable to this. She has already received her back brace. Review of Systems Review of Systems: Twelve systems were reviewed and are negative except for as per HPI. All systems reviewed & are unremarkable except as noted in HPI and below Exam Narrative: General: well appearing, well developed, well nourished, appears stated age. HEENT: normocephalic, atraumatic. Mucous membranes moist. EOMI, PERRLA, bilateral sclera anicteric, no conjunctival injection. Neck
[2023-11-05] MEDS: ASCORBIC ACID 500 MG TABLET PO (07:55)
[2023-11-05] MEDS: lisinopriL 20 MG TABLET PO (07:55)
[2023-11-05] MEDS: FUROSEMIDE 20 MG TABLET PO (07:55)
[2023-11-05] MEDS: THERAPEUTIC MULTIVITAMINS/MINERALS TAB (*BKC) 1 TABLET PO (07:55)
[2023-11-05] MEDS: CHOLECALCIFEROL 1,000 UNITS TABLET 1000 UNITS PO (07:55)
[2023-11-05] MEDS: polyethylene glycoL 3350 17 GM POWD.PACK PO (07:56)
[2023-11-05 08:00] VITALS: O2SAT 98
[2023-11-05] MEDS: LIDOCAINE 5% PATCH 2 PATCH TRANSDERM (11:15)
[2023-11-05] MEDS: POTASSIUM CHLORIDE 20 MEQ ER TABLET 40 MEQ PO (11:43)
[2023-11-05 12:29] LABS: Osmolality, Urine 203 mOsm/kg (50-1200)
[2023-11-05 14:54] VITALS: BP 115/65; PULSE 98; RESP 16; TEMP 36.2; O2SAT 97
[2023-11-05] MEDS: IBUPROFEN 600 MG TABLET PO ×2 (16:12→21:37)
--- NOTE | 2023-11-05 16:28 | WPDNEURCNPN ---
Assessment and Plan Assessment and plan (1) Compression fracture of T8 vertebra: Qualifiers: Encounter type: sequela Qualified Code(s): S22.060S - Wedge compression fracture of T7-T8 vertebra, sequela Code(s): S22.060A - Wedge compression fracture of T7-T8 vertebra, initial encounter for closed fracture Status: Acute Assessment and Plan: The patient is a pleasant 88-year-old female who reports having generalized weakness fatigue, body aches and possible fever after having a shingles vaccination she also had a what sounds like syncopal fall and presented to the ER yesterday with ongoing complaints in addition to mid back pain and pain in the bilateral sides of her torso region with worsening of pain when taking deep breath. CT of the c/a/p revealed an age indeterminate T8 compression fracture without any retropulsion nor any fracture of the posterior elements. Given that the patient does have mild tenderness to palpation over the midthoracic region recommend treating this as an acute fracture. The patient has been provided an LSO brace (ordered by Dr. Van), she should wear this when sitting upright and ambulating. She can remove the brace when lying reclined, when sleeping, and when taking showers. Will plan to treat the patient in this brace for the next 8-12 weeks. The patient can follow-up in our clinic in 6-8 weeks with repeat thoracic x-rays (AP and lateral views) while wearing the brace. Consult date: 11/05/23 Reason for consult: T8 compression fracture HPI: Faye Sellers is a 88 year old female with PMHx for HTN, HLD, OA, previous L2 compression fx with cement augmentation, who presented to the ER yesterday for complaint of generalized pain, body aches, possible fever that she attributes to having after that shingles vaccination last week. Patient states she had this vaccination last Friday, a day later she reports having generalized pain, even in her upper arms, and then what sounds like a possible syncopal event where she fell on the floor. She was brought into the ER on 10/30/2023 but workup was overall unremarkable. The patient had an abdomen and pelvis CT that was unremarkable for any acute process. She then re-presented to the emergency room yesterday with ongoing complaints and having pain when taking deep breaths. She reports pain across her torso and underneath her breast bilaterally, left side more than right. A CT of the chest and abdomen and pelvis was performed and revealed an age indeterminate T8 compression fracture. The patient does report midthoracic back pain. She also complains epigastric discomfort and being constipated and not having a bowel movement for several days. She is attributing this to having a feeling of feeling compressed in her abdomen region with abdominal pain. She denies any pains radiating into her lumbar region and legs. She denies any numbness or tingling and no focal weakness. [facility] Past Medical History Medical History (Updated 11/03/23 @ 23:00 by Mary Kim PA-C) Hyperlipidemia Hypertension Osteoarthritis Uterine cancer Surgical History Surgical History (Updated 11/03/23 @ 22:57 by Mary Kim PA-C) History of appendectomy History of cataract extraction History of colonoscopy with polypectomy History of hysterectomy Family History Family History Other Family history of arthritis Family history of mental disorder Hypertension Social History Social History (Updated 11/03/23 @ 22:58 by Mary Kim PA-C) Social History: Surrogate medical decision maker: Zahraa Oneill, daughter. Code status: Full code. Smoking status: Never smoker Alcohol intake: never Substance use: never Do You Feel Safe in your Home?: Yes Lack of Transportation: No Lack of Food: Never True Current Housing: I Have Housing Concerned About Future Housing: No
[2023-11-05 20:27] VITALS: BP 144/77; PULSE 95; RESP 18; TEMP 36.8; O2SAT 96
[2023-11-06] MEDS: ACETAMINOPHEN 325 MG TABLET 650 MG PO ×2 (01:31→06:47)
[2023-11-06] MEDS: PSYLLIUM POWDER PACKET 1 PACKET BY MOUTH (01:38)
[2023-11-06] MEDS: IBUPROFEN 600 MG TABLET PO (04:51)
[2023-11-06 05:24] LABS: Basophils Absolute Auto 0.1 K/mm3 (0.0-0.1); Basophils Percent Auto 0.7 % (0.2-1.2); Eosinophils Absolute Auto 0.2 K/mm3 (0-0.3); Eosinophils Percent Auto 2.3 % (0-4.4); Hematocrit 34.7 % (37.0-47.0); Hemoglobin 11.7 g/dL (12.0-15.0); Immature Granulocyte Absolute 0.09 K/mm3 (0.00-0.031); Immature Granulocyte Percent A 1.3 % (0-0.5); Lymphocytes Absolute Auto 1.14 K/mm3 (0.9-3.2); Lymphocytes Percent Auto 16.3 % (18.3-44.2); Mean Corpuscular HGB Conc 33.7 g/dl (32-36); Mean Corpuscular Hemoglobin 29.4 pg (26-34); Mean Corpuscular Volume 87.2 fl (80-100); Mean Platelet Volume 7.8 fl (7.4-10.4); Monocytes Absolute Auto 0.6 K/mm3 (0.1-0.6); Monocytes Percent Auto 9.1 % (2.6-8.5); Neutrophils Absolute Auto 4.9 K/mm3 (1.3-6.7); Neutrophils Percent Auto 70.3 % (45.5-73.1); Platelet Count Result 360 k/mm3 (150-375); Red Blood Count 3.98 M/mm3 (4.2-5.4); Red Cell Distribution Width 12.9 % (11.5-14.5)
[2023-11-06 05:34] LABS: Alanine Aminotransferase 22 U/L (6-35); Albumin Level 4.1 g/dL (3.5-5.1); Alkaline Phosphatase 89 U/L (38-126); Anion Gap 4 mmol/L (4-12); Aspartate Amino Transferase 33 U/L (14-36); Bilirubin,Total 0.6 mg/dL (0.2-1.3); Blood Urea Nitrogen 16 mg/dL (7-17); Calcium 9.3 mg/dL (8.4-10.2); Carbon Dioxide 29 mmol/L (22-30); Chloride 94 mmol/L (98-107); Estimated Glomerular Filt Rate > 60; Glucose 107 mg/dL (65-110); Magnesium 2.2 mg/dL (1.6-2.3); Potassium 3.9 mmol/L (3.4-5.0); Sodium 127 mmol/L (137-145)
[2023-11-06 05:57] LABS: Vitamin D 25 Hydroxy 74.9 ng/mL
[2023-11-06 06:00] VITALS: BP 191/102; PULSE 101; RESP 20; TEMP 36.6; O2SAT 96
--- NOTE | 2023-11-06 06:36 | PM.DS ---
DS: Admitting Diagnosis Discharge Date - Admitting Diagnosis Back pain DS: Discharge Diagnosis Discharge Diagnosis (1) Compression fracture of T8 vertebra: Qualifiers: Encounter type: sequela Qualified Code(s): S22.060S - Wedge compression fracture of T7-T8 vertebra, sequela Code(s): S22.060A - Wedge compression fracture of T7-T8 vertebra, initial encounter for closed fracture Status: Acute Assessment and Plan: Consult Neurosurgery. Pain control. /3: Tylenol 650 mg q 4 hours prn Increased Ibuprofen from 200 mg to 600 mg q 6 hours prn Add Lidoderm patch TLSO brace at bedside to be used when up and out of bed PT/OT consulted and rec's appreciated for placement Patient reports falling in the bathroom recently which is likely cause of the fracture. Sounds like she had a vasovagal syncope. 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 She did receive some gentle IV hydration saline is completed. Recheck labs in the morning. Patient may need fluid restriction or salt tabs depending on trajectory. 4/3: Na 132 today Monitor BMP daily (3) Hypokalemia: Code(s): E87.6 - Hypokalemia Status: Acute Assessment and Plan: Official potassium 3.3 on admission, was replaced and is 3.7 today. /3:K 3.5. Replaced with K+ 40 meq x 1 (4) Hypertension: Code(s): I10 - Essential (primary) hypertension Status: Acute Assessment and Plan: Chronic hypertension, continue home home antihypertensives. Blood pressure was elevated this morning and has responded after medication. 4/3: SBP ranging 140-170's. Continue home anti-hypertensives Likely elevated 2/2 pain. Hopefully will decrease with adjustments to pain regimen. (5) Osteoarthritis: Code(s): M19.90 - Unspecified osteoarthritis, unspecified site Status: Acute Assessment and Plan: Would recommend DEXA scan as an outpatient Continue cholecalciferol 1000 units daily Add calcium 600 mg PO daily with meals Plan Feeding:regular diet Analgesia: Tylenol and ibuprofen + lidoderm Thromboembolic prophylaxis: scd Ulcer prophylaxis: na Glycemic control: na Bowel regimen: miralax Lines: PIV Antibiotics: na Disposition: care coordination assisting with placement. PT/OT consults pending. DS: Summary Hospital Course Reason for hospitalization: Compression fracture Hospital Course: Interval history: This is a very pleasant 88-year-old female with history of compression fracture, osteoarthritis, hypertension, and hyperlipidemia who presented to the emergency department for evaluation of back pain. Please see remainder of the H&P for further details. Interval history: 11/05/23: Patient is seen sitting up in bed in no acute distress. She is pleasant and feels better today because she was able to get washed up and brush her teeth. She still complains of mid-back pain that travels around her back and into her abdomen. She is taking tylenol and ibuprofen for pain control and she feels this is helping enough to allow her to work with therapy. She is hesitant to titrate up on her pain medication as she is very sensitive to medications. She reports her last bowel movement was 3 days ago but she has been receiving a bowel regimen and is passing flatus. She is scheduled to be evaluated by PT and OT today and anticipate needing placement at discharge. She is agreeable to this. She has already received her back brace. 11/05: Status at Discharge Cognitive/behavioral status at discharge: A&O x4, pleasant Time Spent with Patient Time attestation: Total time spent providing and/or coordinating discharge services: 46 Exam Narrative: General: well appearing, well developed, well nourished, ap
[2023-11-06 07:31] VITALS: BP 160/94; PULSE 104; RESP 16; TEMP 36.2; O2SAT 97
--- NOTE | 2023-11-06 07:57 | P.PNIM_ITS ---
Progress Note: A&P Assessment and Plan (1) Compression fracture of T8 vertebra: Qualifiers: Encounter type: sequela Qualified Code(s): S22.060S - Wedge compression fracture of T7-T8 vertebra, sequela Code(s): S22.060A - Wedge compression fracture of T7-T8 vertebra, initial encounter for closed fracture Status: Acute Assessment and Plan: Consult Neurosurgery. Pain control. 11/04: * Tylenol 650 mg q 4 hours prn * Increased Ibuprofen from 200 mg to 600 mg q 6 hours prn * Add Lidoderm patch * TLSO brace at bedside to be used when up and out of bed * PT/OT consulted and rec's appreciated for placement * Patient reports falling in the bathroom recently which is likely cause of the fracture. Sounds like she had a vasovagal syncope. 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 She did receive some gentle IV hydration saline is completed. Recheck labs in the morning. Patient may need fluid restriction or salt tabs depending on trajectory. 11/04: * Na 132 today * Monitor BMP daily 11/05: * Na 127 today * likely pain related * Monitor BMP (3) Hypokalemia: Code(s): E87.6 - Hypokalemia Status: Acute Assessment and Plan: Official potassium 3.3 on admission, was replaced and is 3.7 today. 11/04:K 3.5. Replaced with K+ 40 meq x 1 11/05: K+3.9 today (4) Hypertension: Code(s): I10 - Essential (primary) hypertension Status: Acute Assessment and Plan: Chronic hypertension, continue home home antihypertensives. Blood pressure was elevated this morning and has responded after medication. 11/04: * SBP ranging 140-170's. * Continue home anti-hypertensives * Likely elevated 2/2 pain. Hopefully will decrease with adjustments to pain regimen. 11/05: * SBP 160-190's * Likely pain related (5) Osteoarthritis: Code(s): M19.90 - Unspecified osteoarthritis, unspecified site Status: Acute Assessment and Plan: * Would recommend DEXA scan as an outpatient * Continue cholecalciferol 1000 units daily * Add calcium 600 mg PO daily with meals Plan Feeding:regular diet Analgesia: Tylenol and ibuprofen + lidoderm Thromboembolic prophylaxis: scd Ulcer prophylaxis: na Glycemic control: na Bowel regimen: miralax Lines: PIV Antibiotics: na Disposition: Home with home health when pain is controlled Subjective Date/time seen: 11/06/23 07:57 Interval history: This is a very pleasant 88-year-old female with history of compression fracture, osteoarthritis, hypertension, and hyperlipidemia who presented to the emergency department for evaluation of back pain. Please see remainder of the H&P for further details. Interval history: 11/05/23: Patient is seen sitting up in bed in no acute distress. She is pleasant and feels better today because she was able to get washed up and brush her teeth. She still complains of mid-back pain that travels around her back and into her abdomen. She is taking tylenol and ibuprof
--- NOTE | 2023-11-06 07:57 | PM.IMPN ---
Progress Note: A&P Assessment and Plan (1) Compression fracture of T8 vertebra: Qualifiers: Encounter type: sequela Qualified Code(s): S22.060S - Wedge compression fracture of T7-T8 vertebra, sequela Code(s): S22.060A - Wedge compression fracture of T7-T8 vertebra, initial encounter for closed fracture Status: Acute Assessment and Plan: Consult Neurosurgery. Pain control. 11/04: Tylenol 650 mg q 4 hours prn Increased Ibuprofen from 200 mg to 600 mg q 6 hours prn Add Lidoderm patch TLSO brace at bedside to be used when up and out of bed PT/OT consulted and rec's appreciated for placement Patient reports falling in the bathroom recently which is likely cause of the fracture. Sounds like she had a vasovagal syncope. 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 She did receive some gentle IV hydration saline is completed. Recheck labs in the morning. Patient may need fluid restriction or salt tabs depending on trajectory. 11/04: Na 132 today Monitor BMP daily 11/05: Na 127 today likely pain related Monitor BMP (3) Hypokalemia: Code(s): E87.6 - Hypokalemia Status: Acute Assessment and Plan: Official potassium 3.3 on admission, was replaced and is 3.7 today. 11/04:K 3.5. Replaced with K+ 40 meq x 1 11/05: K+3.9 today (4) Hypertension: Code(s): I10 - Essential (primary) hypertension Status: Acute Assessment and Plan: Chronic hypertension, continue home home antihypertensives. Blood pressure was elevated this morning and has responded after medication. 11/04: SBP ranging 140-170's. Continue home anti-hypertensives Likely elevated 2/2 pain. Hopefully will decrease with adjustments to pain regimen. 11/05: SBP 160-190's Likely pain related (5) Osteoarthritis: Code(s): M19.90 - Unspecified osteoarthritis, unspecified site Status: Acute Assessment and Plan: Would recommend DEXA scan as an outpatient Continue cholecalciferol 1000 units daily Add calcium 600 mg PO daily with meals Plan Feeding:regular diet Analgesia: Tylenol and ibuprofen + lidoderm Thromboembolic prophylaxis: scd Ulcer prophylaxis: na Glycemic control: na Bowel regimen: miralax Lines: PIV Antibiotics: na Disposition: Home with home health when pain is controlled Subjective Date/time seen: 11/06/23 07:57 Interval history: This is a very pleasant 88-year-old female with history of compression fracture, osteoarthritis, hypertension, and hyperlipidemia who presented to the emergency department for evaluation of back pain. Please see remainder of the H&P for further details. Interval history: 11/05/23: Patient is seen sitting up in bed in no acute distress. She is pleasant and feels better today because she was able to get washed up and brush her teeth. She still complains of mid-back pain that travels around her back and into her abdomen. She is taking tylenol and ibuprofen for pain control and she feels this is helping enough to allow her to work with therapy. She is hesitant to titrate up on her pain medication as she is very sensitive to medications. She reports her last bowel movement was 3 days ago but she has been receiving a bowel regimen and is passing flatus. She is scheduled to be evaluated by PT and OT today and anticipate needing placement at discharge. She is agreeable to this. She has already received her back brace. 11/05: Mrs. Sellers is experiencing a lot of pain today and she is wanting to try something str
[2023-11-06] MEDS: lisinopriL 20 MG TABLET PO (08:38)
[2023-11-06] MEDS: CYCLOBENZAPRINE HCL 5 MG TABLET PO (08:38)
[2023-11-06] MEDS: ASCORBIC ACID 500 MG TABLET PO (08:38)
[2023-11-06] MEDS: THERAPEUTIC MULTIVITAMINS/MINERALS TAB (*BKC) 1 TABLET PO (08:39)
[2023-11-06] MEDS: CALCIUM CARBONATE (OSCAL) 500 MG TABLET PO (08:39)
[2023-11-06] MEDS: CHOLECALCIFEROL 1,000 UNITS TABLET 1000 UNITS PO (08:39)
[2023-11-06] MEDS: FUROSEMIDE 20 MG TABLET PO (08:39)
[2023-11-06] MEDS: polyethylene glycoL 3350 17 GM POWD.PACK PO (08:39)
[2023-11-06] MEDS: KETOROLAC 30 MG/ML VIAL (*BKC) IV PUSH (08:40)
[2023-11-06] MEDS: oxyCODONE HCL (*CRX) 2.5 MG TAB IR PO (10:53)
[2023-11-06] MEDS: BISACODYL 10 MG SUPPOSITORY RECTAL (10:54)
[2023-11-06] MEDS: LIDOCAINE 5% PATCH 2 PATCH TRANSDERM (10:54)
[2023-11-06] MEDS: CLOBETASOL PROPIONATE 0.05% OINT 30 GM 1 APPLIC TOPICAL (11:01)
[2023-11-06 13:26] VITALS: BP 154/87; PULSE 101; RESP 18; TEMP 36.3; O2SAT 96
--- NOTE | 2023-11-06 13:38 | PCCCNOTE ---
On 11/06/23, the student, Almaz Vasquez, provided care and completed [facility] documentation on this patient. I have reviewed the student's documentation and agree with the findings.
[2023-11-06] MEDS: oxyCODONE HCL (*CRX) 5 MG TAB IR PO (15:21)
[2023-11-06 20:28] VITALS: BP 144/79; PULSE 90; RESP 18; TEMP 36.8; O2SAT 98
[2023-11-07] MEDS: oxyCODONE HCL (*CRX) 5 MG TAB IR PO ×4 (01:51→16:56)
[2023-11-07 05:52] VITALS: BP 147/81; PULSE 85; RESP 16; TEMP 36.8; O2SAT 98
[2023-11-07 06:21] LABS: Basophils Absolute Auto 0.1 K/mm3 (0.0-0.1); Basophils Percent Auto 0.8 % (0.2-1.2); Eosinophils Absolute Auto 0.2 K/mm3 (0-0.3); Eosinophils Percent Auto 2.7 % (0-4.4); Hematocrit 32.6 % (37.0-47.0); Immature Granulocyte Absolute 0.14 K/mm3 (0.00-0.031); Immature Granulocyte Percent A 1.9 % (0-0.5); Lymphocytes Absolute Auto 1.53 K/mm3 (0.9-3.2); Lymphocytes Percent Auto 20.5 % (18.3-44.2); Mean Corpuscular HGB Conc 33.7 g/dl (32-36); Mean Corpuscular Hemoglobin 29.3 pg (26-34); Mean Corpuscular Volume 86.7 fl (80-100); Monocytes Absolute Auto 0.7 K/mm3 (0.1-0.6); Monocytes Percent Auto 9.8 % (2.6-8.5); Neutrophils Absolute Auto 4.8 K/mm3 (1.3-6.7); Neutrophils Percent Auto 64.3 % (45.5-73.1); Platelet Count Result 400 k/mm3 (150-375); Red Blood Count 3.76 M/mm3 (4.2-5.4); Red Cell Distribution Width 12.8 % (11.5-14.5); White Blood Count 7.5 K/mm3 (4.5-10.0)
[2023-11-07 06:41] LABS: Alanine Aminotransferase 18 U/L (6-35); Albumin Level 3.9 g/dL (3.5-5.1); Alkaline Phosphatase 79 U/L (38-126); Anion Gap 4 mmol/L (4-12); Aspartate Amino Transferase 27 U/L (14-36); Bilirubin,Total 0.7 mg/dL (0.2-1.3); Blood Urea Nitrogen 17 mg/dL (7-17); Calcium 9.7 mg/dL (8.4-10.2); Carbon Dioxide 29 mmol/L (22-30); Chloride 90 mmol/L (98-107); Estimated Glomerular Filt Rate 52; Glucose 95 mg/dL (65-110); Magnesium 2.4 mg/dL (1.6-2.3); Potassium 4.4 mmol/L (3.4-5.0); Sodium 123 mmol/L (137-145)
[2023-11-07 08:07] VITALS: BP 135/67; PULSE 88; O2SAT 95
[2023-11-07] MEDS: CHOLECALCIFEROL 1,000 UNITS TABLET 1000 UNITS PO (08:09)
[2023-11-07] MEDS: lisinopriL 20 MG TABLET PO (08:09)
[2023-11-07] MEDS: ASCORBIC ACID 500 MG TABLET PO (08:09)
[2023-11-07] MEDS: THERAPEUTIC MULTIVITAMINS/MINERALS TAB (*BKC) 1 TABLET PO (08:09)
[2023-11-07] MEDS: FUROSEMIDE 20 MG TABLET PO (08:10)
[2023-11-07] MEDS: CALCIUM CARBONATE (OSCAL) 500 MG TABLET PO (08:10)
[2023-11-07] MEDS: polyethylene glycoL 3350 17 GM POWD.PACK PO (08:10)
--- NOTE | 2023-11-07 09:42 | P.PNIM_ITS ---
Progress Note: A&P Assessment and Plan (1) Compression fracture of T8 vertebra: Qualifiers: Encounter type: sequela Qualified Code(s): S22.060S - Wedge compression fracture of T7-T8 vertebra, sequela Code(s): S22.060A - Wedge compression fracture of T7-T8 vertebra, initial encounter for closed fracture Status: Acute Assessment and Plan: Consult Neurosurgery. Pain control. 11/04: * Tylenol 650 mg q 4 hours prn * Increased Ibuprofen from 200 mg to 600 mg q 6 hours prn * Add Lidoderm patch * TLSO brace at bedside to be used when up and out of bed * PT/OT consulted and rec's appreciated for placement * Patient reports falling in the bathroom recently which is likely cause of the fracture. Sounds like she had a vasovagal syncope. 11/05: * Appears in pain today and she states her pain is out of control * Will give Toradol 30 mg IV one time * Start on low dose Flexeril 5 mg * Can add oxycodone 2.5 mg if needed * continue topical pain patches 11/06: * Pain is better controlled * Continue with Oxy 5 mg p.r.n. Q 4 * Lidoderm patches * P.r.n. 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 She did receive some gentle IV hydration saline is completed. Recheck labs in the morning. Patient may need fluid restriction or salt tabs depending on trajectory. 11/04: * Na 132 today * Monitor BMP daily 11/05: * Na 127 today * likely pain related * Monitor BMP 11/06: * Na 123 * Added salt tabs 1 gram BID * Already on loop diuretic * plasma osmo is still pending * urine osmo is 203 (3) Hypokalemia: Code(s): E87.6 - Hypokalemia Status: Acute Assessment and Plan: Official potassium 3.3 on admission, was replaced and is 3.7 today. 11/04:K 3.5. Replaced with K+ 40 meq x 1 11/05: K+3.9 today 11/06: K+ 4.4 (4) Hypertension: Code(s): I10 - Essential (primary) hypertension Status: Acute Assessment and Plan: Chronic hypertension, continue home home antihypertensives. Blood pressure was elevated this morning and has responded after medication. 11/04: * SBP ranging 140-170's. * Continue home anti-hypertensives * Likely elevated 2/2 pain. Hopefully will decrease with adjustments to pain regimen. 11/05: * SBP 160-190's * Likely pain related 11/06: * Blood pressures are improved now that her pain is better controlled (5) Osteoarthritis: Code(s): M19.90 - Unspecified osteoarthritis, unspecified site Status: Acute Assessment and Plan: * Would recommend DEXA scan as an outpatient * Continue cholecalciferol 1000 units daily * Add calcium 600 mg PO daily with meals Plan Feeding:regular diet Analgesia: Tylenol and ibuprofen + lidoderm Thromboembolic prophylaxis: scd Ulcer prophylaxis: na Glycemic control: na Bowel regimen: miralax Lines: PIV Antibiotics: na Disposition: Home with home health when pain is controlled Subjective Date/time seen: 11/07/23 09:42 Interval history: This is a very pleasant 88-year-old female with history of compression fracture, osteoarthritis, hypertension, and hyperlipidemia who presented to the emergency department for eval
--- NOTE | 2023-11-07 09:42 | PM.IMPN ---
Progress Note: A&P Assessment and Plan (1) Compression fracture of T8 vertebra: Qualifiers: Encounter type: sequela Qualified Code(s): S22.060S - Wedge compression fracture of T7-T8 vertebra, sequela Code(s): S22.060A - Wedge compression fracture of T7-T8 vertebra, initial encounter for closed fracture Status: Acute Assessment and Plan: Consult Neurosurgery. Pain control. 11/04: Tylenol 650 mg q 4 hours prn Increased Ibuprofen from 200 mg to 600 mg q 6 hours prn Add Lidoderm patch TLSO brace at bedside to be used when up and out of bed PT/OT consulted and rec's appreciated for placement Patient reports falling in the bathroom recently which is likely cause of the fracture. Sounds like she had a vasovagal syncope. 11/05: Appears in pain today and she states her pain is out of control Will give Toradol 30 mg IV one time Start on low dose Flexeril 5 mg Can add oxycodone 2.5 mg if needed continue topical pain patches 11/06: Pain is better controlled Continue with Oxy 5 mg p.r.n. Q 4 Lidoderm patches P.r.n. 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 She did receive some gentle IV hydration saline is completed. Recheck labs in the morning. Patient may need fluid restriction or salt tabs depending on trajectory. 11/04: Na 132 today Monitor BMP daily 11/05: Na 127 today likely pain related Monitor BMP 11/06: Na 123 Added salt tabs 1 gram BID Already on loop diuretic plasma osmo is still pending urine osmo is 203 (3) Hypokalemia: Code(s): E87.6 - Hypokalemia Status: Acute Assessment and Plan: Official potassium 3.3 on admission, was replaced and is 3.7 today. 11/04:K 3.5. Replaced with K+ 40 meq x 1 11/05: K+3.9 today 11/06: K+ 4.4 (4) Hypertension: Code(s): I10 - Essential (primary) hypertension Status: Acute Assessment and Plan: Chronic hypertension, continue home home antihypertensives. Blood pressure was elevated this morning and has responded after medication. 11/04: SBP ranging 140-170's. Continue home anti-hypertensives Likely elevated /2 pain. Hopefully will decrease with adjustments to pain regimen. 11/05: SBP 160-190's Likely pain related 11/06: Blood pressures are improved now that her pain is better controlled (5) Osteoarthritis: Code(s): M19.90 - Unspecified osteoarthritis, unspecified site Status: Acute Assessment and Plan: Would recommend DEXA scan as an outpatient Continue cholecalciferol 1000 units daily Add calcium 600 mg PO daily with meals Plan Feeding:regular diet Analgesia: Tylenol and ibuprofen + lidoderm Thromboembolic prophylaxis: scd Ulcer prophylaxis: na Glycemic control: na Bowel regimen: miralax Lines: PIV Antibiotics: na Disposition: Home with home health when pain is controlled Subjective Date/time seen: 11/07/23 09:42 Interval history: This is a very pleasant 88-year-old female with history of compression fracture, osteoarthritis, hypertension, and hyperlipidemia who presented to the emergency department for evaluation of back pain. Please see remainder of the H&P for further details. Interval history: 11/05/23: Patient is seen sitting up in bed in no acute distress. She is pleasant and feels better today because she was able to get washed up and brush her teeth. She still complains of mid-back pain that travels around her back and into her abdomen. She is taking tylenol and ibuprofen for pain control and she feels this is helping enough to allow her to work with therapy. She is hesitant to titrate up on her pain medication as she is very sensitive to medications. She reports her last bowel movement was 3 days ag
[2023-11-07] MEDS: SODIUM CHLORIDE 1 GM TABLET PO ×2 (09:46→16:56)
[2023-11-07 14:00] VITALS: BP 113/52; PULSE 85; RESP 16; TEMP 36.7; O2SAT 99
[2023-11-07 19:28] VITALS: BP 120/70; PULSE 83; RESP 18; TEMP 36.6; O2SAT 96
[2023-11-07 20:00] VITALS: PULSE 83; RESP 18; O2SAT 96
[2023-11-07] MEDS: CLOBETASOL PROPIONATE 0.05% OINT 30 GM 1 APPLIC TOPICAL (20:15)
[2023-11-08 04:26] VITALS: BP 140/66; PULSE 88; RESP 16; TEMP 37.1; O2SAT 97
[2023-11-08 04:47] LABS: Basophils Absolute Auto 0.1 K/mm3 (0.0-0.1); Basophils Percent Auto 0.8 % (0.2-1.2); Eosinophils Absolute Auto 0.2 K/mm3 (0-0.3); Eosinophils Percent Auto 2.6 % (0-4.4); Hematocrit 29.6 % (37.0-47.0); Hemoglobin 9.9 g/dL (12.0-15.0); Immature Granulocyte Absolute 0.15 K/mm3 (0.00-0.031); Immature Granulocyte Percent A 2.3 % (0-0.5); Lymphocytes Absolute Auto 1.38 K/mm3 (0.9-3.2); Lymphocytes Percent Auto 21.2 % (18.3-44.2); Mean Corpuscular HGB Conc 33.4 g/dl (32-36); Mean Corpuscular Hemoglobin 29.1 pg (26-34); Mean Corpuscular Volume 87.1 fl (80-100); Mean Platelet Volume 7.7 fl (7.4-10.4); Monocytes Absolute Auto 0.8 K/mm3 (0.1-0.6); Monocytes Percent Auto 11.5 % (2.6-8.5); Neutrophils Percent Auto 61.6 % (45.5-73.1); Platelet Count Result 362 k/mm3 (150-375); Red Cell Distribution Width 12.8 % (11.5-14.5); White Blood Count 6.5 K/mm3 (4.5-10.0)
[2023-11-08 05:00] LABS: Alanine Aminotransferase 16 U/L (6-35); Albumin Level 3.4 g/dL (3.5-5.1); Alkaline Phosphatase 85 U/L (38-126); Anion Gap -1 mmol/L (4-12); Aspartate Amino Transferase 32 U/L (14-36); Bilirubin,Total 0.5 mg/dL (0.2-1.3); Blood Urea Nitrogen 24 mg/dL (7-17); Calcium 9.1 mg/dL (8.4-10.2); Carbon Dioxide 32 mmol/L (22-30); Chloride 92 mmol/L (98-107); Estimated Glomerular Filt Rate 52; Glucose 95 mg/dL (65-110); Magnesium 2.4 mg/dL (1.6-2.3); Potassium 4.7 mmol/L (3.4-5.0); Sodium 123 mmol/L (137-145)
[2023-11-08] MEDS: oxyCODONE HCL (*CRX) 5 MG TAB IR PO (06:45)
[2023-11-08] MEDS: CALCIUM CARBONATE (OSCAL) 500 MG TABLET PO (09:17)
[2023-11-08] MEDS: THERAPEUTIC MULTIVITAMINS/MINERALS TAB (*BKC) 1 TABLET PO (09:17)
[2023-11-08] MEDS: FUROSEMIDE 20 MG TABLET BY MOUTH (09:17)
[2023-11-08] MEDS: CHOLECALCIFEROL 1,000 UNITS TABLET 1000 UNITS PO (09:17)
[2023-11-08] MEDS: SODIUM CHLORIDE 1 GM TABLET PO ×2 (09:17→16:28)
[2023-11-08] MEDS: lisinopriL 20 MG TABLET PO (09:17)
[2023-11-08] MEDS: ASCORBIC ACID 500 MG TABLET PO (09:17)
[2023-11-08] MEDS: LIDOCAINE 5% PATCH 2 PATCH TRANSDERM (09:18)
[2023-11-08] MEDS: polyethylene glycoL 3350 17 GM POWD.PACK PO (09:18)
[2023-11-08] MEDS: IBUPROFEN 600 MG TABLET PO (09:21)
[2023-11-08] MEDS: ACETAMINOPHEN 325 MG TABLET 650 MG PO (09:22)
[2023-11-08] MEDS: CLOBETASOL PROPIONATE 0.05% OINT 30 GM 1 APPLIC TOPICAL ×2 (09:24→20:30)
[2023-11-08] MEDS: SODIUM CHLORIDE 0.9% IV 1,000 ML 100 ML IV CONT (10:14)
--- NOTE | 2023-11-08 13:12 | P.PNIM_ITS ---
Progress Note: A&P Assessment and Plan (1) Compression fracture of T8 vertebra: Qualifiers: Encounter type: sequela Qualified Code(s): S22.060S - Wedge compression fracture of T7-T8 vertebra, sequela Code(s): S22.060A - Wedge compression fracture of T7-T8 vertebra, initial encounter for closed fracture Status: Acute Assessment and Plan: Consult Neurosurgery.? Pain control. 11/04: * Tylenol 650 mg q 4 hours prn * Increased Ibuprofen from 200 mg to 600 mg q 6 hours prn * Add Lidoderm patch * TLSO brace at bedside to be used when up and out of bed * PT/OT consulted and rec's appreciated for placement * Patient reports falling in the bathroom recently which is likely cause of the fracture. Sounds like she had a vasovagal syncope. 11/05: * Appears in pain today and she states her pain is out of control * Will give Toradol 30 mg IV one time * Start on low dose Flexeril 5 mg * Can add oxycodone 2.5 mg if needed * continue topical pain patches 11/06: * Pain is better controlled * Continue with Oxy 5 mg p.r.n. Q 4 * Lidoderm patches * P.r.n. 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 She did receive some gentle IV hydration saline is completed.? Recheck labs in the morning.? Patient may need fluid restriction or salt tabs depending on trajectory. 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 Blood pressure was elevated this morning and has responded after medication. 11/04: * SBP ranging 140-170's. * Continue home anti-hypertensives * Likely elevated 2/2 pain. Hopefully will decrease with adjustments to pain regimen. 11/05: * SBP 160-190's * Likely pain related 11/06: * Blood pressures are improved now that her pain is better controlled (4) Osteoarthritis: Code(s): M19.90 - Unspecified osteoarthritis, unspecified site Status: Acute Assessment and Plan: * Would recommend DEXA scan as an outpatient * Continue cholecalciferol 1000 units daily * Add calcium 600 mg PO daily with meals * Would recommend DEXA scan as an outpatient * Continue cholecalciferol 1000 units daily * Add calcium 600 mg PO daily with meals Plan Feeding:regular diet Analgesia: Tylenol and ibuprofen + lidoderm Thromboembolic prophylaxis: scd Ulcer prophylaxis: na Glycemic control: na Bowel regimen: miralax Lines: PIV Antibiotics: na Disposition: Home with home health when pain is controlled Subjective Date/time seen: 11/08/23 13:12 Interval history: This is a very pleasant 88-year-old female with history of compression fracture, osteoarthritis, hypertension, and hyperlipidemia who presented to the emergency department for evaluation of back pain. Please see remainder of the H&P for further details. Interval history:
--- NOTE | 2023-11-08 13:12 | PM.IMPN ---
Progress Note: A&P Assessment and Plan (1) Compression fracture of T8 vertebra: Qualifiers: Encounter type: sequela Qualified Code(s): S22.060S - Wedge compression fracture of T7-T8 vertebra, sequela Code(s): S22.060A - Wedge compression fracture of T7-T8 vertebra, initial encounter for closed fracture Status: Acute Assessment and Plan: Consult Neurosurgery.? Pain control. 11/04: Tylenol 650 mg q 4 hours prn Increased Ibuprofen from 200 mg to 600 mg q 6 hours prn Add Lidoderm patch TLSO brace at bedside to be used when up and out of bed PT/OT consulted and rec's appreciated for placement Patient reports falling in the bathroom recently which is likely cause of the fracture. Sounds like she had a vasovagal syncope. 11/05: Appears in pain today and she states her pain is out of control Will give Toradol 30 mg IV one time Start on low dose Flexeril 5 mg Can add oxycodone 2.5 mg if needed continue topical pain patches 11/06: Pain is better controlled Continue with Oxy 5 mg p.r.n. Q 4 Lidoderm patches P.r.n. 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 She did receive some gentle IV hydration saline is completed.? Recheck labs in the morning.? Patient may need fluid restriction or salt tabs depending on trajectory. 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 Blood pressure was elevated this morning and has responded after medication. 11/04: SBP ranging 140-170's. Continue home anti-hypertensives Likely elevated 2/2 pain. Hopefully will decrease with adjustments to pain regimen. 11/05: SBP 160-190's Likely pain related /: Blood pressures are improved now that her pain is better controlled (4) Osteoarthritis: Code(s): M19.90 - Unspecified osteoarthritis, unspecified site Status: Acute Assessment and Plan: Would recommend DEXA scan as an outpatient Continue cholecalciferol 1000 units daily Add calcium 600 mg PO daily with meals Would recommend DEXA scan as an outpatient Continue cholecalciferol 1000 units daily Add calcium 600 mg PO daily with meals Plan Feeding:regular diet Analgesia: Tylenol and ibuprofen + lidoderm Thromboembolic prophylaxis: scd Ulcer prophylaxis: na Glycemic control: na Bowel regimen: miralax Lines: PIV Antibiotics: na Disposition: Home with home health when pain is controlled Subjective Date/time seen: 11/08/23 13:12 Interval history: This is a very pleasant 88-year-old female with history of compression fracture, osteoarthritis, hypertension, and hyperlipidemia who presented to the emergency department for evaluation of back pain. Please see remainder of the H&P for further details. Interval history: 11/05/23: Patient is seen sitting up in bed in no acute distress. She is pleasant and feels better today because she was able to get washed up and brush her teeth. She still complains of mid-back pain that travels around her back and into her abdomen. She is taking tylenol and ibuprofen for pain control and she feels this is helping enough to allow her to work with therapy. She is hesitant to titrate up on her pain medication as she is very sensitive to medications. She reports her last bowel movement was 3 days ago b
[2023-11-08 14:00] VITALS: BP 132/65; PULSE 83; RESP 16; TEMP 36.4; O2SAT 99
[2023-11-08] MEDS: oxyCODONE HCL (*CRX) 2.5 MG TAB IR 7.5 MG PO (16:27)
[2023-11-08] MEDS: FUROSEMIDE 20 MG TABLET PO (17:59)
[2023-11-08 20:19] VITALS: BP 134/76; PULSE 89; RESP 16; TEMP 36.6; O2SAT 97
[2023-11-08 20:45] VITALS: PULSE 89; RESP 16; O2SAT 97
[2023-11-08 21:43] VITALS: O2SAT 97
[2023-11-08 22:08] LABS: Sodium 124 mmol/L (137-145)
[2023-11-09 05:08] VITALS: BP 155/77; PULSE 96; RESP 16; TEMP 36.5; O2SAT 95
[2023-11-09 05:09] LABS: Basophils Absolute Auto 0.1 K/mm3 (0.0-0.1); Eosinophils Absolute Auto 0.2 K/mm3 (0-0.3); Eosinophils Percent Auto 2.8 % (0-4.4); Hematocrit 29.9 % (37.0-47.0); Hemoglobin 9.9 g/dL (12.0-15.0); Immature Granulocyte Absolute 0.09 K/mm3 (0.00-0.031); Immature Granulocyte Percent A 1.3 % (0-0.5); Lymphocytes Absolute Auto 1.14 K/mm3 (0.9-3.2); Lymphocytes Percent Auto 16.6 % (18.3-44.2); Mean Corpuscular HGB Conc 33.1 g/dl (32-36); Mean Corpuscular Hemoglobin 29.2 pg (26-34); Mean Corpuscular Volume 88.2 fl (80-100); Mean Platelet Volume 7.7 fl (7.4-10.4); Monocytes Absolute Auto 0.8 K/mm3 (0.1-0.6); Neutrophils Absolute Auto 4.5 K/mm3 (1.3-6.7); Neutrophils Percent Auto 66.3 % (45.5-73.1); Platelet Count Result 385 k/mm3 (150-375); Red Blood Count 3.39 M/mm3 (4.2-5.4); Red Cell Distribution Width 13.1 % (11.5-14.5); White Blood Count 6.9 K/mm3 (4.5-10.0)
[2023-11-09 05:23] LABS: Alanine Aminotransferase 16 U/L (6-35); Albumin Level 3.6 g/dL (3.5-5.1); Alkaline Phosphatase 103 U/L (38-126); Anion Gap -1 mmol/L (4-12); Aspartate Amino Transferase 29 U/L (14-36); Bilirubin,Total 0.4 mg/dL (0.2-1.3); Blood Urea Nitrogen 24 mg/dL (7-17); Calcium 9.4 mg/dL (8.4-10.2); Carbon Dioxide 33 mmol/L (22-30); Chloride 96 mmol/L (98-107); Estimated Glomerular Filt Rate 52; Glucose 101 mg/dL (65-110); Magnesium 2.4 mg/dL (1.6-2.3); Potassium 5.1 mmol/L (3.4-5.0); Sodium 128 mmol/L (137-145)
[2023-11-09] MEDS: ACETAMINOPHEN 325 MG TABLET 650 MG PO (05:42)
[2023-11-09] MEDS: CHOLECALCIFEROL 1,000 UNITS TABLET 1000 UNITS PO (11:45)
[2023-11-09] MEDS: lisinopriL 20 MG TABLET PO (11:45)
[2023-11-09] MEDS: polyethylene glycoL 3350 17 GM POWD.PACK PO (11:45)
[2023-11-09] MEDS: CALCIUM CARBONATE (OSCAL) 500 MG TABLET PO (11:45)
[2023-11-09] MEDS: SODIUM CHLORIDE 1 GM TABLET PO (11:45)
[2023-11-09] MEDS: ASCORBIC ACID 500 MG TABLET PO (11:45)
[2023-11-09] MEDS: FUROSEMIDE 20 MG TABLET BY MOUTH (11:45)
[2023-11-09] MEDS: THERAPEUTIC MULTIVITAMINS/MINERALS TAB (*BKC) 1 TABLET PO (11:45)
[2023-11-09] MEDS: LIDOCAINE 5% PATCH 2 PATCH TRANSDERM (12:23)
--- NOTE | 2023-11-09 13:01 | PCPTNOTE ---
Attempted to see patient for PT, however patient declined due to anticipated discharge.
--- NOTE | 2023-11-09 14:43 | P.DS_ITS ---
DS: Admitting Diagnosis Discharge Date 11-08 Admitting Diagnosis Weakness, fall DS: Discharge Diagnosis Discharge Diagnosis (1) Compression fracture of T8 vertebra: Qualifiers: Encounter type: sequela Qualified Code(s): S22.060S - Wedge compression fracture of T7-T8 vertebra, sequela Code(s): S22.060A - Wedge compression fracture of T7-T8 vertebra, initial encounter for closed fracture Status: Acute Assessment and Plan: Consult Neurosurgery.? Pain control. 11/04: * Tylenol 650 mg q 4 hours prn * Increased Ibuprofen from 200 mg to 600 mg q 6 hours prn * Add Lidoderm patch * TLSO brace at bedside to be used when up and out of bed * PT/OT consulted and rec's appreciated for placement * Patient reports falling in the bathroom recently which is likely cause of the fracture. Sounds like she had a vasovagal syncope. 11/05: * Appears in pain today and she states her pain is out of control * Will give Toradol 30 mg IV one time * Start on low dose Flexeril 5 mg * Can add oxycodone 2.5 mg if needed * continue topical pain patches 11/06: * Pain is better controlled * Continue with Oxy 5 mg p.r.n. Q 4 * Lidoderm patches * P.r.n. 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 She did receive some gentle IV hydration saline is completed.? Recheck labs in the morning.? Patient may need fluid restriction or salt tabs depending on trajectory. 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 Blood pressure was elevated this morning and has responded after medication. 11/04: * SBP ranging 140-170's. * Continue home anti-hypertensives * Likely elevated 2/2 pain. Hopefully will decrease with adjustments to pain regimen. 11/05: * SBP 160-190's * Likely pain related 11/06: * Blood pressures are improved now that her pain is better controlled (4) Osteoarthritis: Code(s): M19.90 - Unspecified osteoarthritis, unspecified site Status: Acute Assessment and Plan: * Would recommend DEXA scan as an outpatient * Continue cholecalciferol 1000 units daily * Add calcium 600 mg PO daily with meals * Would recommend DEXA scan as an outpatient * Continue cholecalciferol 1000 units daily * Add calcium 600 mg PO daily with meals Plan Feeding:regular diet Analgesia: Tylenol and ibuprofen + lidoderm Thromboembolic prophylaxis: scd Ulcer prophylaxis: na Glycemic control: na Bowel regimen: miralax Lines: PIV Antibiotics: na Disposition: Home with home health when pain is controlled DS: Summary Hospital Course Hospital Course: This is a very pleasant 88-year-old female with history of compression fracture, osteoarthritis, hypertension, and hyperlipidemia who presented to the emergency department for evaluation of back pain. Please see flower
--- NOTE | 2023-11-09 14:43 | PM.DS ---
DS: Admitting Diagnosis Discharge Date 11-08 Admitting Diagnosis Weakness, fall DS: Discharge Diagnosis Discharge Diagnosis (1) Compression fracture of T8 vertebra: Qualifiers: Encounter type: sequela Qualified Code(s): S22.060S - Wedge compression fracture of T7-T8 vertebra, sequela Code(s): S22.060A - Wedge compression fracture of T7-T8 vertebra, initial encounter for closed fracture Status: Acute Assessment and Plan: Consult Neurosurgery.? Pain control. 11/04: Tylenol 650 mg q 4 hours prn Increased Ibuprofen from 200 mg to 600 mg q 6 hours prn Add Lidoderm patch TLSO brace at bedside to be used when up and out of bed PT/OT consulted and rec's appreciated for placement Patient reports falling in the bathroom recently which is likely cause of the fracture. Sounds like she had a vasovagal syncope. 11/05: Appears in pain today and she states her pain is out of control Will give Toradol 30 mg IV one time Start on low dose Flexeril 5 mg Can add oxycodone 2.5 mg if needed continue topical pain patches 11/06: Pain is better controlled Continue with Oxy 5 mg p.r.n. Q 4 Lidoderm patches P.r.n. 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 She did receive some gentle IV hydration saline is completed.? Recheck labs in the morning.? Patient may need fluid restriction or salt tabs depending on trajectory. 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 Blood pressure was elevated this morning and has responded after medication. 11/04: SBP ranging 140-170's. Continue home anti-hypertensives Likely elevated 2/2 pain. Hopefully will decrease with adjustments to pain regimen. 11/05: SBP 160-190's Likely pain related 11/06: Blood pressures are improved now that her pain is better controlled (4) Osteoarthritis: Code(s): M19.90 - Unspecified osteoarthritis, unspecified site Status: Acute Assessment and Plan: Would recommend DEXA scan as an outpatient Continue cholecalciferol 1000 units daily Add calcium 600 mg PO daily with meals Would recommend DEXA scan as an outpatient Continue cholecalciferol 1000 units daily Add calcium 600 mg PO daily with meals Plan Feeding:regular diet Analgesia: Tylenol and ibuprofen + lidoderm Thromboembolic prophylaxis: scd Ulcer prophylaxis: na Glycemic control: na Bowel regimen: miralax Lines: PIV Antibiotics: na Disposition: Home with home health when pain is controlled DS: Summary Hospital Course Hospital Course: This is a very pleasant 88-year-old female with history of compression fracture, osteoarthritis, hypertension, and hyperlipidemia who presented to the emergency department for evaluation of back pain. Please see remainder of the H&P for further details. Interval history: 11/05/23: Patient is seen sitting up in bed in no acute distress. She is pleasant and feels better today because she was able to get washed up and brush her teeth. She still complains of mid-back pain that travels around her back and into her abdomen. She is taking tylenol and ibuprofen for pain control and she feels this is helping enough to allow her to work with therapy. She is hesitant to titrate up on her pain medication as she is very sensitive to
== END 2023-11-09 14:40 | disposition home health service (06) | DRG 552 ==
LOC: ANHED 12:13 → ANH2MED 16:33
PROVIDERS: Nurse Practitioner; Physician Assistant; Admitting Provider Internal Medicine; Emergency Provider Student in an Organized Health Care Education/Training Program; PCP Nurse Practitioner Family; Visit Provider Nurse Practitioner Acute Care
DX: S22.060A Wedge compression fracture of T7-T8 vertebra, initial encounter for closed fracture (principal); E87.1 Hypo-osmolality and hyponatremia; Z20.822 Contact with and (suspected) exposure to COVID-19; E87.6 Hypokalemia; I10 Essential (primary) hypertension; M19.90 Unspecified osteoarthritis, unspecified site; D64.9 Anemia, unspecified; E78.5 Hyperlipidemia, unspecified; X58.XXXA Exposure to other specified factors, initial encounter; Z85.42 Personal history of malignant neoplasm of other parts of uterus; Z90.49 Acquired absence of other specified parts of digestive tract; Z98.49 Cataract extraction status, unspecified eye
CPT/HCPCS: 36415; 71045; 71275; 74174; 80048; 80053; 80069; 81003; 82306; 82550; 82570; 83690; 83735; 83930; 83935; 84295; 84300; 84443; 84540; 85025; 85027; 85380; 87637; 93005; 96374; 96375; 97110; 97161; 97165; 97530; 97535; 99285; A9270; G0378; J1885; J2270; J2405; J7030; Q9967

== ENCOUNTER 2023-12-30 14:07 | Emergency (ER) | payer MEDICARE, SELFPAY ==
--- NOTE | ~2023-12-30 | CT_ITS ---
EXAMINATION: CT thoracic lumbar wo con DATE: 12/30/2023 15:15 INDICATION: Back pain. Trauma. TECHNIQUE: Computed tomography (CT) of the thoracic and lumbar spine was performed without intravenou s contrast. Automated exposure control and iterative reconstruction technique were employed. The dose -length product was 267.33 mGy-cm. COMPARISON: CT 11/03/2023 FINDINGS: CT THORACIC SPINE: There is mild scarring at the lung apices. There is mild atelectasis bilaterally. There is a cluster of centrilobular nodules in right middle lobe, likely infection or inflammation. N o pleural effusion. There is 10 degrees dextroscoliosis of thoracic spine. There is 2 mm anterolisthe sis of T2 on T3. There is a burst fracture of T8 with 3/5 loss of height and retropulsion of bone 3 m m into central spinal canal, worsened from 11/03/2023. There is mildly decreased disc height at multipl e levels. There is severely decreased disc height at T5-T6 and T6-T7. There is multilevel facet joint osteoarthritis, severe in the upper thoracic spine. There is mild neural foraminal stenosis at many levels bilaterally. There is moderate neural foraminal stenosis bilaterally at T8-T9. There is mild c entral canal stenosis at T8. CT LUMBAR SPINE: There is 8 degrees levocurvature of the lumbar spine. There is a chronic burst fract ure of L2 with 2/5 loss of height, retropulsion of bone 3 mm into central spinal canal, and changes o f vertebroplasty. There is 5 mm anterolisthesis of L5 on S1. There are healing insufficiency fracture s of the sacral ala and S2 body. There is mildly decreased disc height at L1-L2 and L2-L3 and severel y decreased disc height at L3-L4, L4-L5, and L5-S1. The following disc levels are specifically discus sed: L1-L2: The disc is bulging. There is severe right and mild left facet joint osteoarthritis. There is mild bilateral neural foraminal stenosis. There is mild central canal stenosis. L2-L3: The disc is bulging. There is moderate bilateral facet joint osteoarthritis. There is mild jakob ateral neural foraminal stenosis. There is mild central canal stenosis. L3-L4: The disc is bulging. There is severe bilateral facet joint osteoarthritis. There is moderate b ilateral neural foraminal stenosis. There is mild central canal stenosis. L4-L5: The disc is bulging. There is severe bilateral facet joint osteoarthritis. There is moderate b ilateral neural foraminal stenosis. There is moderate central canal stenosis. L5-S1: The disc is bulging. There is severe bilateral facet joint osteoarthritis. There is moderate b ilateral neural foraminal stenosis. There is mild central canal stenosis. IMPRESSION: 1. T8 burst fracture, worsened from 11/03/2023. 2. Healing sacral insufficiency fractures. 3. Severe thoracic and lumbar spondylosis. Reviewed, dictated and finalized at location A.
[2023-12-30 14:15] VITALS: BP 151/71; PULSE 101; RESP 20; TEMP 36.9; O2SAT 97
--- NOTE | 2023-12-30 15:05 | PC.NURSE ---
Pt taken to ct at this time
--- NOTE | 2023-12-30 15:09 | ED.BACK ---
HPI - Back Pain/Injury General Chief Complaint: Back Pain/Injury Stated Complaint: lower back pain Time Seen by Provider: 12/30/23 14:30 History of Present Illness HPI Narrative: 88-year-old female present to the emergency department for evaluation of lower back pain. Patient does have history of multiple compression fractures and had a recent compression fracture of T8. Patient is currently wearing her back brace but states she is having increased lumbar back pain over the last few days. Patient states she stumbled but did not have a fall the ground. Related Data Home Medications Medication Instructions Recorded Confirmed furosemide 20 mg tablet 20 mg PO DAILY 07/08/22 11/03/23 lisinopril 20 mg tablet 20 mg PO DAILY 07/08/22 11/03/23 cholecalciferol (vitamin D3) 25 1,000 unit PO DAILY 11/03/23 11/03/23 mcg (1,000 unit) capsule clobetasol 0.05 % topical ointment 1 applic topical BID PRN maceration 11/03/23 11/03/23 coQ10 (ubiquinol) 100 mg capsule 100 mg PO DAILY 11/03/23 11/03/23 multivitamin with minerals-folic 1 tablet PO DAILY 11/03/23 11/03/23 acid 0.4 mg tablet (One-A-Day Women's 50 Plus) polyethylene glycol 1 ea miscellaneous DAILY 11/03/23 11/03/23 ascorbic acid (vitamin C) 500 mg 500 mg PO DAILY 11/04/23 11/04/23 tablet ketotifen fumarate 0.025 % (0.035 1 drp EACH EYE Q12-24H 11/04/23 11/04/23 %) eye drops turmeric 400 mg capsule 400 mg PO DAILY 11/04/23 11/04/23 vitamin B complex and vitamin C 1 tablet PO DAILY 11/04/23 11/04/23 comb no.22-folic acid 1,000 mcg tablet Allergies Allergy/AdvReac Type Severity Reaction Status Date / Time grass pollen Allergy Sneezing Verified 11/03/23 17:58 house dust Allergy Sneezing Verified 11/03/23 17:58 codeine AdvReac Intermediate Confusion Verified 11/03/23 17:58 Review of Systems Review of Systems: All systems reviewed & are unremarkable except as noted in HPI and below PMFSH Past Medical History Medical History (Updated 12/31/23 @ 00:01 by Barbara Duran) Hyperlipidemia Hypertension Osteoarthritis Uterine cancer Surgical History Surgical History (Updated 11/03/23 @ 22:57 by Mary Kim PA-C) History of appendectomy History of cataract extraction History of colonoscopy with polypectomy History of hysterectomy Family History Family History Other Family history of arthritis Family history of mental disorder Hypertension Social History Social History (Updated 11/03/23 @ 22:58 by Mary Kim PA-C) Social History: Surrogate medical decision maker: Zahraa Oneill, daughter. Code status: Full code. Smoking status: Never smoker Alcohol intake: never Substance use: never Do You Feel Safe in your Home?: Yes Lack of Transportation: No Lack of Food: Never True Current Housing: I Have Housing Concerned About Future Housing: No Difficulty Paying Gas/Electric Bills: No Difficulty Paying for Meds: No Currently Unemployed: No Education: High School Diploma/GED Difficulty w/ Childcare or Family Care: No Additional living arrangements comments: The patient lives in her own home with her dog Adriana. [place] [address] [place] Additional occupation/education comments: Retired. Spiritual care concerns: No Exam Narrative: APPEARANCE: Well appearing, no pain, no distress, well-nourished. HEAD: normocephalic, atraumatic. EYES: PERRLA/EOMI, conjunctivae clear. NOSE: Normal no drainage EARS:TMS clear with good light reflex. THROAT: Pharynx clear, no exudate. NECK: Supple. No adenopathy, no masses. RESPIRATORY: Airway patent, respirations nonlabored. Clear to auscultation bilaterally, no rales, rhonchi, wheezing. CARDIOVASCULAR: Regular rate and rhythm without murmurs rubs or gallops. ABDOMINAL: Soft, nontender, nondistended, normal bowel sounds MUSCULOSKELETAL: No acute midline deformity of the thoracic spine. Bilateral lower back ten
--- NOTE | 2023-12-30 15:17 | PC.NURSE ---
Pt returned to room 20 at this time
== END 2023-12-30 16:43 | disposition home or self-care (01) ==
PROVIDERS: Emergency Provider Emergency Medicine; PCP Nurse Practitioner Family
DX: S22.061A Stable burst fracture of T7-T8 vertebra, initial encounter for closed fracture (principal); E78.5 Hyperlipidemia, unspecified; I10 Essential (primary) hypertension; M19.90 Unspecified osteoarthritis, unspecified site; Z85.42 Personal history of malignant neoplasm of other parts of uterus; Z98.49 Cataract extraction status, unspecified eye; Z90.710 Acquired absence of both cervix and uterus; M47.816 Spondylosis without myelopathy or radiculopathy, lumbar region; M47.814 Spondylosis without myelopathy or radiculopathy, thoracic region; W18.40XA Slipping, tripping and stumbling without falling, unspecified, initial encounter
CPT/HCPCS: 72128; 72131; 99284

== ENCOUNTER 2024-01-07 15:55 | Outpatient (CLI) | payer MEDICARE, SELFPAY ==
--- NOTE | ~2024-01-07 | XR_ITS ---
Thoracic spine: Clinical Indication: Compression fracture AP and lateral views were performed. Severe T8 compression fracture present. Prior vertebroplasty of L2. There is mild edematous change of the thoracic spine. Paravertebral soft tissues appear normal. Impression: Severe T8 compression fracture. Prior L2 vertebroplasty. Reviewed, dictated and finalized at [facility]. Impression: Severe T8 compression fracture. Prior L2 vertebroplasty.
== END 2024-01-07 15:56 | disposition home or self-care (01) ==
PROVIDERS: PCP Nurse Practitioner Family
DX: S22.060A Wedge compression fracture of T7-T8 vertebra, initial encounter for closed fracture (principal); Z98.890 Other specified postprocedural states; X58.XXXA Exposure to other specified factors, initial encounter
CPT/HCPCS: 72072

== ENCOUNTER 2024-03-12 15:35 | Outpatient (CLI) | payer MEDICARE, SELFPAY ==
--- NOTE | ~2024-03-12 | XR_ITS ---
3 VIEWS LUMBAR SPINE Ordering provider: Patsy Carrillo MD History: . S22.060A - Wedge compression fracture of T7-T8 vertebra, ... . Comparison: August 21, 2021 FINDINGS: VERTEBRAL BODIES:Vertebroplasty of L2. Loss of height of L3 is noted about 30% which is most likely a cute. Minimal anterolisthesis at the level of L5-S1. DISK SPACES: Narrowing of the disc L3-L4, L4-L5 and L5-S1. Multilevel facet joint disease. SOFT TISSUES: Normal. IMPRESSION: Compression fracture of L3 with loss of height of about 30% which is new compared to the previous heather dy. Vertebral plasty of L2. Reviewed, dictated and finalized at location A. IMPRESSION: Compression fracture of L3 with loss of height of about 30% which is new compar ed to the previous study. Vertebral plasty of L2.
--- NOTE | ~2024-03-12 | XR_ITS ---
3 VIEWS THORACIC SPINE Ordering provider: Patsy Carrillo MD History: . S22.060A - Wedge compression fracture of T7-T8 vertebra, ... . Comparison: January 07, 2024 FINDINGS: VERTEBRAL BODIES: Loss of height of about 70% is seen in T8. No subluxation. Mild dextroscoliosis. De generative changes of the spine. Vertebroplasty seen in L2. Slight loss of height seen in L3. DISK SPACES: Multilevel degenerative disc disease. SOFT TISSUES: Normal. IMPRESSION: No change from previous examination. Reviewed, dictated and finalized at location A.
== END 2024-03-12 15:36 | disposition home or self-care (01) ==
PROVIDERS: PCP Nurse Practitioner Family; Visit Provider Neurological Surgery
DX: S22.060D Wedge compression fracture of T7-T8 vertebra, subsequent encounter for fracture with routine healing (principal); X58.XXXD Exposure to other specified factors, subsequent encounter
CPT/HCPCS: 72072; 72100

== ENCOUNTER 2024-03-24 10:16 | Inpatient (IN) | payer MEDICARE, SELFPAY ==
--- NOTE | ~2024-03-24 | CT_ITS ---
EXAMINATION: CT thoracic lumbar wo con DATE: 03/24/2024 11:11 INDICATION: Back pain. Compression fracture. TECHNIQUE: Computed tomography (CT) of the thoracic and lumbar spine was performed without intravenou s contrast. Automated exposure control and iterative reconstruction technique were employed. The dose -length product was 258.70 mGy-cm. COMPARISON: CT 12/30/2023, radiographs 03/12/24 FINDINGS: CT THORACIC SPINE: There is mild scarring at the lung apices. There is mild atelectasis bilaterally. No pleural effusion. There is 10 degrees dextroscoliosis of thoracic spine. There is 2 mm anterolisth esis of T2 on T3. There is a burst fracture of T8 with 3/5 loss of height and retropulsion of bone 3 mm into central spinal canal, stable from 12/30/2023. There is a burst fracture of inferior plate of T 12 with 1/5 loss of height, new from 12/30/2023. There is a burst fracture of T12 with 1/5 loss of hei ght and retropulsion of bone 3 mm into the central spinal canal, new from 12/30/2023. There is mildly decreased disc height at multiple levels. There is severely decreased disc height at T5-T6 and T6-T7 and moderately decreased disc height at T7-T8 and T8-T9, and T9-T10. There is multilevel facet joint osteoarthritis, severe in the upper thoracic spine. There is mild neural foraminal stenosis at many l evels bilaterally. There is moderate neural foraminal stenosis bilaterally at T8-T9. There is mild ce ntral canal stenosis at T8 and T11-T12. CT LUMBAR SPINE: There is 4 degrees levocurvature of the lumbar spine. There is a chronic burst fract ure of L2 with 2/5 loss of height, retropulsion of bone 3 mm into central spinal canal, and changes o f vertebroplasty. There is a burst fracture of L3 with 2/5 loss of height and retropulsion of bone 3 mm into central spinal canal, worsened from 12/30/2023. There is 5 mm anterolisthesis of L5 on S1. The re are old healed insufficiency fractures of the sacrum. There is mildly decreased disc height at L1- L2 and L2-L3 and severely decreased disc height at L3-L4, L4-L5, and L5-S1. The following disc levels are specifically discussed: L1-L2: The disc is bulging. There is severe right and mild left facet joint osteoarthritis. There is mild bilateral neural foraminal stenosis. There is mild central canal stenosis. L2-L3: The disc is bulging. There is moderate bilateral facet joint osteoarthritis. There is mild jakob ateral neural foraminal stenosis. There is mild central canal stenosis. L3-L4: The disc is bulging. There is severe bilateral facet joint osteoarthritis. There is moderate b ilateral neural foraminal stenosis. There is mild central canal stenosis. L4-L5: The disc is bulging. There is severe bilateral facet joint osteoarthritis. There is moderate b ilateral neural foraminal stenosis. There is moderate central canal stenosis. L5-S1: The disc is bulging. There is severe bilateral facet joint osteoarthritis. There is moderate b ilateral neural foraminal stenosis. There is mild central canal stenosis. IMPRESSION: 1. Subacute burst fractures of T11, T12, and L3, new from 12/30/2023. 2. Severe thoracic and lumbar spondylosis. Reviewed, dictated and finalized at location A.
[2024-03-24 10:15] VITALS: BP 213/76; PULSE 94; RESP 18; TEMP 36.8; O2SAT 95
--- NOTE | 2024-03-24 10:31 | ED.BACK ---
HPI - Back Pain/Injury General Chief Complaint: Back Pain/Injury <Tessa Hamilton PA-C - Last Filed: 03/24/24 16:24> Stated Complaint: chronic back pain <NATI Gunderson Last Filed: 03/24/24 16:24> Time Seen by Provider: 03/24/24 10:23 <NATI Gunderson Last Filed: 03/24/24 16:24> Source: patient and old records reviewed <NATI Gunderson Last Filed: 03/24/24 16:24> Mode of arrival: EMS <NATI Gunderson Last Filed: 03/24/24 16:24> Limitations: no limitations <NATI Gunderson Last Filed: 03/24/24 16:24> History of Present Illness HPI Narrative: Patient is an 88 y/o female who presents to the ED via EMS from home with report of acute on chronic back pain. Per records, patient has hx of several previous lumbar compression fx's and sustained a thoracic compression fracture from a fall in November. Was admitted to the hospital at that time, fitted for TLSO brace. Has been seen in our ED several times since the initial injury for pain. Has been following with Neurosurgery, but was cleared from their service after appt last as she has been doing better. Patient reports over the last 2 days, she has had increased pain throughout her mid to lower back. Denies any new falls or injuries. Has been taking 2 ibuprofen and 1 Tylenol every 6 hours. Last took these medications of 645 this morning. She denies any new bowel or bladder incontinence, weakness, numbness, saddle anesthesia, abdominal pain. Patient lives at home alone. Does have some assistance. Does not have home health care currently, had previously performed physical therapy for back pain with some improvement. <NATI Gunderson Last Filed: 03/24/24 16:24> Related Data Home Medications: Home Medications Medication Instructions Recorded Confirmed furosemide 20 mg tablet 20 mg PO DAILY 07/08/22 03/24/24 lisinopril 20 mg tablet 20 mg PO DAILY 07/08/22 03/24/24 cholecalciferol (vitamin D3) 25 1,000 unit PO DAILY 11/03/23 03/24/24 mcg (1,000 unit) capsule clobetasol 0.05 % topical ointment 1 applic topical BID PRN maceration 11/03/23 03/24/24 coQ10 (ubiquinol) 100 mg capsule 100 mg PO DAILY 11/03/23 03/24/24 multivitamin with minerals-folic 1 tablet PO DAILY 11/03/23 03/24/24 acid 0.4 mg tablet (One-A-Day Women's 50 Plus) polyethylene glycol 1 ea miscellaneous DAILY 11/03/23 03/24/24 ascorbic acid (vitamin C) 500 mg 500 mg PO DAILY 11/04/23 03/24/24 tablet ketotifen fumarate 0.025 % (0.035 1 drp EACH EYE Q12-24H 11/04/23 03/24/24 %) eye drops turmeric 400 mg capsule 400 mg PO DAILY 11/04/23 03/24/24 vitamin B complex and vitamin C 1 tablet PO DAILY 11/04/23 03/24/24 comb no.22-folic acid 1,000 mcg tablet acetaminophen 650 mg 650 mg PO Q8H 01/08/24 03/24/24 tablet,extended release calcium carbonate 400 mg PO DAILY 01/08/24 03/24/24 ibuprofen 200 mg tablet 200 mg PO Q6H PRN Back Pain 01/08/24 03/24/24 <Tessa Hamilton PA-C - Last Filed: 03/24/24 16:24> Allergies/Adverse Reactions: Allergies Allergy/AdvReac Type Severity Reaction Status Date / Time fluconazole Allergy mental Verified 03/24/24 14:31 status changes grass pollen Allergy Sneezing Verified 03/24/24 14:31 house dust Allergy Sneezing Verified 03/24/24 14:31 tramadol Allergy mental Verified 03/24/24 14:31 status changes codeine AdvReac Intermediate Confusion Verified 03/24/24 14:31 <Tessa Hamilton PA-C - Last Filed: 03/24/24 16:24> Review of Systems Review of Systems: All systems reviewed & are unremarkable except as noted in HPI. <Tessa Hamilton PA-C - Last Filed: 03/24/24 16:24> All systems reviewed & are unremarkable except as noted in HPI and below <Tessa Hamilton PA-C - Last Filed: 03/24/24 16:24> [facility] Past Medical History Medical History: Medical History (Reviewed 03/24/24 @ 20:48
[2024-03-24 11:01] LABS: Add Urine Microscopic? NO; Appearance Urine Clear (Clear); Bilirubin Urine Negative (Negative); Blood Urine Negative (Negative); Color Urine Yellow (Yellow); Glucose Urine UA Negative (Negative); Ketones Urine Negative (Negative); Leukocyte Esterase Ur Negative LEU/UL (Negative); Nitrate Urine Negative (Negative); Protein Urine Negative (Negative); Specific Grav Ur 1.007 (1.001-1.035); Urobilinogen Urine 0.2 mg/dL (<2.0)
[2024-03-24 11:35] VITALS: BP 183/93; PULSE 100; RESP 18; O2SAT 100
[2024-03-24] MEDS: HYDROcodone/acetaminophen (*CRX) 5-325 MG TABLET 1 TAB PO ×2 (11:37→21:01)
[2024-03-24 12:21] LABS: Basophils Absolute Auto 0.1 K/mm3 (0.0-0.1); Basophils Percent Auto 0.7 % (0.2-1.2); Eosinophils Absolute Auto 0.1 K/mm3 (0-0.3); Eosinophils Percent Auto 1.2 % (0-4.4); Hematocrit 38.1 % (37.0-47.0); Hemoglobin 12.5 g/dL (12.0-15.0); Immature Granulocyte Absolute 0.05 K/mm3 (0.00-0.031); Immature Granulocyte Percent A 0.6 % (0-0.5); Lymphocytes Absolute Auto 0.76 K/mm3 (0.9-3.2); Lymphocytes Percent Auto 9.4 % (18.3-44.2); Mean Corpuscular HGB Conc 32.8 g/dl (32-36); Mean Corpuscular Hemoglobin 29.3 pg (26-34); Mean Corpuscular Volume 89.4 fl (80-100); Monocytes Absolute Auto 0.7 K/mm3 (0.1-0.6); Monocytes Percent Auto 8.6 % (2.6-8.5); Neutrophils Absolute Auto 6.4 K/mm3 (1.3-6.7); Neutrophils Percent Auto 79.5 % (45.5-73.1); Platelet Count Result 254 k/mm3 (150-375); Red Blood Count 4.26 M/mm3 (4.2-5.4); Red Cell Distribution Width 12.5 % (11.5-14.5); White Blood Count 8.1 K/mm3 (4.5-10.0)
[2024-03-24 12:31] LABS: Alanine Aminotransferase 24 U/L (6-35); Albumin Level 4.5 g/dL (3.5-5.1); Alkaline Phosphatase 125 U/L (38-126); Anion Gap 8 mmol/L (4-12); Aspartate Amino Transferase 35 U/L (14-36); Bilirubin,Total 0.5 mg/dL (0.2-1.3); Blood Urea Nitrogen 19 mg/dL (7-17); Calcium 9.8 mg/dL (8.4-10.2); Carbon Dioxide 34 mmol/L (22-30); Chloride 93 mmol/L (98-107); Estimated Glomerular Filt Rate > 60; Glucose 112 mg/dL (65-110); Potassium 3.8 mmol/L (3.4-5.0); Sodium 135 mmol/L (137-145)
[2024-03-24 13:16] VITALS: BP 163/84; PULSE 95; RESP 20; O2SAT 95
--- NOTE | 2024-03-24 13:58 | ADMGEN ---
This patient, Faye Sellers, was admitted to [facility] Surg Room 323-02. Patient/family oriented to hospital policies and general routines including ID bracelet, bed and alarms, visiting hours, pain management, procedures, bathroom and other care routines, personal items, smoking policy, room service/diet, and visiting hours. Information on how to activate the Rapid Response Team has been discussed. Patient/Family are encouraged to report perceived risks to care and to ask questions if they do not understand what they are told or what they should do.
[2024-03-24 14:00] VITALS: BP 183/81; PULSE 94; RESP 20; TEMP 36.8; O2SAT 98
--- NOTE | 2024-03-24 14:09 | PM.IMHP ---
H&P: HPI History of Present Illness Date/Time: 03/24/24 14:09 Chief Complaint: Back Pain Narrative: 88 y/o F presents here with back pain with PMH of hyperlipidemia, hypertension, osteoarthritis, and uterine cancer. The patient presents here from home for further evaluation of worsened chronic back pain. Has previously been chronic in nature for years, but has become more severe since November of 2023 and has followed with Neurosurgery. Last visit with this service was on 03/18/2024, at this visit she had underwent a course of physical therapy and was doing well until about a month ago when she developed recurrent pain without precipitating event. Tolerable with Tylenol and ibuprofen, declined further imaging at this appointment and neurosurgery felt that patient was good to move forward with seeing them on a as needed basis. Patient then developed severe lower back pain in the last 2-5 days. Patient believes it may have started some time after she opened a window that was hard to lift up. Denies weakness, numbness, or tingling in her lower extremities. CTA of the chest/abdomen/pelvis done on 11/03/2023 showed a T8 compression fracture. Repeat imaging of the T/L-spine on 12/30/2023 showed a worsening T8 burst fracture. XR of fit T-spine and L-spine on 03/12 showed no change in the thoracic spine and A compression fracture of L3 with 30% loss of height. CT of the thoracic/lumbar spine today showed a subacute burst fracture of T11, T12, and L3 that are new from the CT done on 12/30/2023. Initial VS at presentation: 98.2? F, HR 94, RR 18, to 13/76, and 95% on RA. ED workup showed: No leukocytosis, no anemia, creatinine 0.8 and number GFR, and UA unremarkable. CT of the thoracic/lumbar spine showed a subacute burst fracture of the T11, T12 and L3 new from 12/30/2023 and severe thoracic and lumbar spondylosis. Review of Systems Review of Systems: All systems reviewed & are unremarkable except as noted in HPI and below PMFSH Past Medical History Medical History Hyperlipidemia Hypertension Osteoarthritis Uterine cancer s/p hysterectomy Surgical History Surgical History History of appendectomy History of cataract extraction History of colonoscopy with polypectomy History of hysterectomy History of kyphoplasty Family History Family History Other Family history of arthritis Family history of mental disorder Hypertension Social History Social History Social History: Surrogate medical decision maker: Zahraa Oneill, daughter. Code status: Full code. Smoking status: Never smoker Alcohol intake: never Substance use: never Substance use type: does not use Do You Feel Safe in your Home?: Yes Lack of Transportation: No Lack of Food: Never True Current Housing: I Have Housing Concerned About Future Housing: No Difficulty Paying Gas/Electric Bills: No Difficulty Paying for Meds: No Currently Unemployed: No Education: Don't Know Difficulty w/ Childcare or Family Care: No Additional living arrangements comments: The patient lives in her own home with her dog Adriana. They [place] [address]. Additional occupation/education comments: Retired. Spiritual care concerns: No Meds Home Medications and Allergies Home Medications Medication Instructions Recorded Confirmed Type furosemide 20 mg tablet 20 mg PO DAILY 07/08/22 03/24/24 History lisinopril 20 mg tablet 20 mg PO DAILY 07/08/22 03/24/24 History psyllium husk 0.4 gram capsule 0.4 g PO DAILY PRN constipation 30 10/30/23 03/24/24 Rx (Metamucil) days #30 caps cholecalciferol (vitamin D3) 25 1,000 unit PO DAILY 11/03/23 03/24/24 History mcg (1,000 unit) capsule clobetasol 0.05 % topical ointment 1 applic topical
[2024-03-24 14:30] VITALS: BP 173/94
[2024-03-24 21:09] VITALS: BP 139/76; PULSE 93; RESP 18; TEMP 36.8; O2SAT 95
[2024-03-25] MEDS: ACETAMINOPHEN 325 MG TABLET 650 MG PO (00:22)
[2024-03-25 05:48] VITALS: BP 142/79; PULSE 86; RESP 18; TEMP 36.7; O2SAT 96
[2024-03-25] MEDS: VITAMIN B CMPLX/VIT C/FOLIC AC 1 CAPSULE 1 CAP PO (09:02)
[2024-03-25] MEDS: CHOLECALCIFEROL 1,000 UNITS TABLET 1000 UNITS PO (09:02)
[2024-03-25] MEDS: ASCORBIC ACID 500 MG TABLET PO (09:03)
[2024-03-25] MEDS: THERAPEUTIC MULTIVITAMINS/MINERALS TAB (*BKC) 1 TABLET PO (09:03)
[2024-03-25] MEDS: lisinopriL 20 MG TABLET PO (09:03)
[2024-03-25] MEDS: FUROSEMIDE 20 MG TABLET PO (09:03)
[2024-03-25] MEDS: polyethylene glycoL 3350 17 GM POWD.PACK PO (09:04)
[2024-03-25] MEDS: CALCIUM CARBONATE (TUMS) 500 MG (200 MG ELEMENTAL) 400 MG BY MOUTH (09:04)
--- NOTE | 2024-03-25 13:40 | PCPTNOTE ---
Spoke with hospitalist who recommended holding on therapy until neurosurgery consult is completed. Will follow.
--- NOTE | 2024-03-25 13:41 | PCOTNOTE ---
Per MD, hold therapy evaluations until neurosurgery consult is in. Will continue to follow.
--- NOTE | 2024-03-25 15:42 | PM.IMPN ---
Progress Note: A&P Assessment and Plan (1) Lumbar compression fracture: Qualifiers: Encounter type: subsequent encounter Fracture healing: with routine healing Lumbar vertebra fracture level: unspecified lumbar vertebra Qualified Code(s): S32.000D - Wedge compression fracture of unspecified lumbar vertebra, subsequent encounter for fracture with routine healing Code(s): S32.000A - Wedge compression fracture of unspecified lumbar vertebra, initial encounter for closed fracture Status: Acute (2) Thoracic compression fracture: Qualifiers: Encounter type: subsequent encounter Fracture healing: with routine healing Thoracic vertebra fracture level: unspecified thoracic vertebra Qualified Code(s): S22.000D - Wedge compression fracture of unspecified thoracic vertebra, subsequent encounter for fracture with routine healing Code(s): S22.000A - Wedge compression fracture of unspecified thoracic vertebra, initial encounter for closed fracture Status: Acute (3) Back pain of thoracolumbar region: Code(s): M54.50 - Low back pain, unspecified; M54.6 - Pain in thoracic spine Status: Acute (4) Limited mobility: Code(s): Z74.09 - Other reduced mobility Status: Acute Plan Patient presents with worsening lower back pain. Found to have new lumbar and thoracic compression fractures. No evidence of cauda equinus syndrome. Neuro exam is nonfocal at the moment. Pending neurosurgical consultation. SCDs for now. DNR. Subjective Date/time seen: 03/25/24 15:42 Interval history: No acute overnight events. Patient reports the pain is definitely there at the lower back and wraps around her waist/sides of lower back Review of Systems Review of Systems: All systems reviewed & are unremarkable except as noted in HPI and below (Subjective) Exam Const: General: comfortable and no acute distress Eyes: Pupils: Equal, round and reactive pupils present Neck: Neck: supple Resp: Effort & Inspection: normal respiratory effort Auscultation: clear to auscultation bilaterally Cardio: Rate: regular rate Rhythm: regular rhythm GI: GI Palp: Yes Soft to palpation and No Tenderness to palpation present (GI) Neuro: Other: Nonfocal Extrem: General: no edema Objective Data Vital Signs Vital Signs: Vital Signs - 24 hr 03/24/24 18:28 03/24/24 21:09 03/24/24 20:00 Temperature 98.3 F Pulse Rate 93 Respiratory Rate 18 Blood Pressure 139/76 Pulse Oximetry 95 Oxygen Delivery Room Air Room Air 03/25/24 05:48 03/25/24 08:00 Temperature 98.1 F Pulse Rate 86 Respiratory Rate 18 Blood Pressure 142/79 H Pulse Oximetry 96 Oxygen Delivery Room Air Intake/Output Intake/Output: Intake & Output 03/22/24 03/23/24 03/24/24 03/25/24 23:59 23:59 23:59 23:59 Intake Total 618 600 Output Total 300 Balance 618 300 Meds/Results Medications: Active Medications Generic Name Dose Route Start Last Admin Trade Name Freq PRN Reason Stop Dose Admin Acetaminophen 650 mg 03/24/24 12:46 03/25/24 00:22 Acetaminophen 325 Mg Tablet PO 650 mg Q4H PRN Administration Mild Pain (1-3) or Fever Hydrocodone Bitart/Acetaminophen 1 tab 03/24/24 12:46 03/24/24 21:01 Hydrocodone/Acetaminophen (*Crx) 5-325 Mg Tablet PO 1 tab Q4H PRN Administration Pain Rated 4-6 Ascorbic Acid 500 mg 03/25/24 09:00 03/25/24 09:03 Ascorbic Acid 500 Mg Tablet PO 500 mg DAILY MARY JANE Administration Calcium Carbonate 400 mg 03/25/24 09:00 03/25/24 09:04 Calcium Carbonate (Tums) 500 Mg (200 Mg Elemental) BY MOUTH 400 mg DAILY MARY JANE Administration Clobetasol Propionate 1 applic 03/24/24 20:54 Clobetasol Propionate 0.05% Oint 30 Gm TOPICAL Q12HR PRN maceration Furosemide 20 mg 03/25/24 09:00 03/25/24 09:03 Furosemide 20 Mg Tablet PO 20 mg DAILY MARY JANE Administration Ibuprofen 400 mg
[2024-03-25] MEDS: HYDROcodone/acetaminophen (*CRX) 5-325 MG TABLET 1 TAB PO (20:04)
[2024-03-25 20:15] VITALS: BP 148/91; PULSE 87; RESP 18; TEMP 37.3; O2SAT 94
[2024-03-26] MEDS: HYDROcodone/acetaminophen (*CRX) 5-325 MG TABLET 1 TAB PO ×3 (00:12→21:53)
[2024-03-26 05:00] VITALS: BP 139/80; PULSE 70; RESP 18; TEMP 36.4; O2SAT 96
[2024-03-26] MEDS: CALCIUM CARBONATE (TUMS) 500 MG (200 MG ELEMENTAL) 400 MG BY MOUTH (08:24)
[2024-03-26] MEDS: lisinopriL 20 MG TABLET PO (08:25)
[2024-03-26] MEDS: CHOLECALCIFEROL 1,000 UNITS TABLET 1000 UNITS PO (08:25)
[2024-03-26] MEDS: THERAPEUTIC MULTIVITAMINS/MINERALS TAB (*BKC) 1 TABLET PO (08:25)
[2024-03-26] MEDS: ASCORBIC ACID 500 MG TABLET PO (08:25)
[2024-03-26] MEDS: FUROSEMIDE 20 MG TABLET PO (08:25)
[2024-03-26] MEDS: polyethylene glycoL 3350 17 GM POWD.PACK PO (08:25)
[2024-03-26] MEDS: VITAMIN B CMPLX/VIT C/FOLIC AC 1 CAPSULE 1 CAP PO (08:25)
--- NOTE | 2024-03-26 10:16 | PCPTNOTE ---
Pt. awaiting neurosurgery consult prior to Physical therapy evaluation per hospitalist request yesterday.
--- NOTE | 2024-03-26 13:59 | PCOTNOTE ---
Pt. awaiting neurosurgery consult prior to mobilizing with therapy.
--- NOTE | 2024-03-26 14:28 | PHAR ---
Pharmacy verified home med: * Use from home * Ketotifen Fumarate 0.025 % (0.035 %) Drops instill 1 drop into affected eye(s) up to every 12 hours as needed for allergy symptoms in the eye
[2024-03-26 15:13] VITALS: BP 128/74; PULSE 85; RESP 16; TEMP 37; O2SAT 95
--- NOTE | 2024-03-26 16:32 | PM.IMPN ---
Progress Note: A&P Assessment and Plan (1) Lumbar compression fracture: Qualifiers: Encounter type: subsequent encounter Fracture healing: with routine healing Lumbar vertebra fracture level: unspecified lumbar vertebra Qualified Code(s): S32.000D - Wedge compression fracture of unspecified lumbar vertebra, subsequent encounter for fracture with routine healing Code(s): S32.000A - Wedge compression fracture of unspecified lumbar vertebra, initial encounter for closed fracture Status: Acute (2) Thoracic compression fracture: Qualifiers: Encounter type: subsequent encounter Fracture healing: with routine healing Thoracic vertebra fracture level: unspecified thoracic vertebra Qualified Code(s): S22.000D - Wedge compression fracture of unspecified thoracic vertebra, subsequent encounter for fracture with routine healing Code(s): S22.000A - Wedge compression fracture of unspecified thoracic vertebra, initial encounter for closed fracture Status: Acute (3) Back pain of thoracolumbar region: Code(s): M54.50 - Low back pain, unspecified; M54.6 - Pain in thoracic spine Status: Acute (4) Limited mobility: Code(s): Z74.09 - Other reduced mobility Status: Acute Plan P this is an 88-year-old female with history of osteoporosis and thoracic compression fractures that was diagnosed in November presented with worsening back pain. She had no new injuries or falls. She is Found to have new lumbar and thoracic compression fractures. No evidence of cauda equinus syndrome. Neuro exam is nonfocal at the moment. Neurosurgery has been consulted and awaiting the recommendation. She also follows regularly with Neurosurgery TLSO brace ordered and in place. Physical therapy will be ordered. CT thoracic and lumbar spine on admission showed subacute burst fracture of 11 T12 and L3 which were new as compared to CT done on 12/30/2023. Pain controlled with [place] p.r.n[facility] History of osteoporosis was on Fosamax at some point. May benefit from going to bone health clinic. Continue calcium and vitamin-D supplementation Hypertension DVT prophylaxis Lovenox Do not resuscitate Disposition likely need rehab Subjective Date/time seen: 03/26/24 16:32 Interval history: Back pain present whenever she moves. Son at bedside and discussed with him and the patient. No other complaints. Review of Systems Review of Systems: All systems reviewed & are unremarkable except as noted in HPI and below Exam Narrative: GENERAL: Elderly, frail, non-toxic, in no acute distress. HEAD: Normocephalic, atraumatic. RESPIRATORY: Airway patent, respirations nonlabored. Clear to auscultation bilaterally, no rales, rhonchi, wheezing. CARDIOVASCULAR: Regular rate and rhythm without murmurs, rubs, or gallops. ABDOMINAL: Soft, nontender, nondistended. Normoactive BS. MUSCULOSKELETAL: Moves all extremities. No gross deformities. SKIN: Warm, dry, normal color. NEURO: A&O X3. Speech clear. PSYCHIATRIC: Appropriate mood and affect. Normal interaction Objective Data Vital Signs Vital Signs: Vital Signs - 24 hr 03/25/24 20:15 03/26/24 05:00 03/26/24 08:00 Temperature 99.1 F 97.5 F L Pulse Rate 87 70 Respiratory Rate 18 18 Blood Pressure 148/91 H 139/80 Pulse Oximetry 94 96 Oxygen Delivery Room Air 03/26/24 15:13 Temperature 98.6 F Pulse Rate 85 Respiratory Rate 16 Blood Pressure 128/74 Pulse Oximetry 95 Oxygen Delivery Intake/Output Intake/Output: Intake & Output 03/23/24 03/24/24 03/25/24 03/26/24 23:59 23:59 23:59 23:59 Intake Total 618 1550 1200 Output Total 300 275 Balance 618 1250 925 Meds/Results Medications: Active Medications Generic Name Dose Route Start Last Admin Trade Name Freq PRN Reason Stop Dose Admin Acetaminophen 650 mg 03/24/24 12:46 03/25/24 00:22 Acetaminophen 325 Mg Tablet PO 650 mg Q4H PRN Administration Mild Pain
--- NOTE | 2024-03-26 16:49 | WPDNEUROSGCN ---
Assessment and Plan Assessment and plan (1) Thoracic compression fracture: Qualifiers: Encounter type: subsequent encounter Fracture healing: with routine healing Thoracic vertebra fracture level: unspecified thoracic vertebra Qualified Code(s): S22.000D - Wedge compression fracture of unspecified thoracic vertebra, subsequent encounter for fracture with routine healing Code(s): S22.000A - Wedge compression fracture of unspecified thoracic vertebra, initial encounter for closed fracture Status: Acute (2) Lumbar compression fracture: Qualifiers: Encounter type: subsequent encounter Fracture healing: with routine healing Lumbar vertebra fracture level: unspecified lumbar vertebra Qualified Code(s): S32.000D - Wedge compression fracture of unspecified lumbar vertebra, subsequent encounter for fracture with routine healing Code(s): S32.000A - Wedge compression fracture of unspecified lumbar vertebra, initial encounter for closed fracture Status: Acute Plan Ms. Sellers is an 88-year-old female with history of previous thoracolumbar compression fractures that I had seen one week ago in clinic for scheduled follow-up. At that visit, she indicated some increasing lower thoracic/ upper lumbar region pain over the previous month that was not severe enough for her consider additional imaging that I had offered to order at our clinic visit. I received a consult request this morning for new thoracolumbar compression fractures that were discovered on admission earlier this week for acute on chronic low back pain. On reviewing her imaging, she has compression fractures at T11 and T12 that are new compared to CT imaging done in December but are apparent on her x-rays from last week. There is also an L3 compression fracture that was apparent on her imaging in December but appears to have lost some height compared to that CT scan. She should already have a brace from her previous injuries. I would recommend that she wear the TLSO brace for comfort. She can work with physical therapy. She could see pain management as an outpatient for evaluation for a kyphoplasty. I would also recommend that she follow up with her primary care physician regarding benefit medication for her osteoporosis to help prevent future fractures. She does not require any neurosurgical intervention. Consult date: 03/26/24 HPI: [facility] Past Medical History Medical History Hyperlipidemia Hypertension Osteoarthritis Uterine cancer s/p hysterectomy Surgical History Surgical History History of appendectomy History of cataract extraction History of colonoscopy with polypectomy History of hysterectomy History of kyphoplasty Family History Family History Other Family history of arthritis Family history of mental disorder Hypertension Social History Social History Social History: Surrogate medical decision maker: Zahraa Oneill, daughter. Code status: Full code. Smoking status: Never smoker Alcohol intake: never Substance use: never Substance use type: does not use Do You Feel Safe in your Home?: Yes Lack of Transportation: No Lack of Food: Never True Current Housing: I Have Housing Concerned About Future Housing: No Difficulty Paying Gas/Electric Bills: No Difficulty Paying for Meds: No Currently Unemployed: No Education: Don't Know Difficulty w/ Childcare or Family Care: No Additional living arrangements comments: The patient lives in her own home with her dog Adriana. [place] [address] Additional occupation/education comments: Retired. Spiritual care concerns: No Meds Home Medications and Allergies Home Medications Medication Instructions Recorded Confirm
[2024-03-26 20:00] VITALS: BP 157/85; PULSE 76; RESP 16; TEMP 37.3; O2SAT 96
[2024-03-27 06:00] VITALS: BP 134/70; PULSE 81; RESP 16; TEMP 37; O2SAT 95
[2024-03-27] MEDS: HYDROcodone/acetaminophen (*CRX) 5-325 MG TABLET 1 TAB PO ×3 (06:13→21:09)
--- NOTE | 2024-03-27 08:52 | PCPTNOTE ---
Pt has brace present in room. Attempted to encourage patient to participate in therapy with use of brace. Pt gave multiple reasons she could not participate at this time including her daughter is supposed to call, she doesn't have the brace on, she would need appropriate undergarments for incontinence, etc. Educated pt we could assist in these needs, pt declines at this time.
[2024-03-27] MEDS: VITAMIN B CMPLX/VIT C/FOLIC AC 1 CAPSULE 1 CAP PO (09:16)
[2024-03-27] MEDS: THERAPEUTIC MULTIVITAMINS/MINERALS TAB (*BKC) 1 TABLET PO (09:16)
[2024-03-27] MEDS: FUROSEMIDE 20 MG TABLET PO (09:16)
[2024-03-27] MEDS: IBUPROFEN 400 MG TABLET PO (09:16)
[2024-03-27] MEDS: lisinopriL 20 MG TABLET PO (09:16)
[2024-03-27] MEDS: ASCORBIC ACID 500 MG TABLET PO (09:18)
[2024-03-27] MEDS: CHOLECALCIFEROL 1,000 UNITS TABLET 1000 UNITS PO (09:18)
[2024-03-27] MEDS: CALCIUM CARBONATE (TUMS) 500 MG (200 MG ELEMENTAL) 400 MG BY MOUTH (09:18)
[2024-03-27] MEDS: polyethylene glycoL 3350 17 GM POWD.PACK PO (09:18)
--- NOTE | 2024-03-27 09:45 | PM.IMPN ---
Progress Note: A&P Assessment and Plan (1) Lumbar compression fracture: Qualifiers: Encounter type: subsequent encounter Fracture healing: with routine healing Lumbar vertebra fracture level: unspecified lumbar vertebra Qualified Code(s): S32.000D - Wedge compression fracture of unspecified lumbar vertebra, subsequent encounter for fracture with routine healing Code(s): S32.000A - Wedge compression fracture of unspecified lumbar vertebra, initial encounter for closed fracture Status: Acute (2) Thoracic compression fracture: Qualifiers: Encounter type: subsequent encounter Fracture healing: with routine healing Thoracic vertebra fracture level: unspecified thoracic vertebra Qualified Code(s): S22.000D - Wedge compression fracture of unspecified thoracic vertebra, subsequent encounter for fracture with routine healing Code(s): S22.000A - Wedge compression fracture of unspecified thoracic vertebra, initial encounter for closed fracture Status: Acute (3) Back pain of thoracolumbar region: Code(s): M54.50 - Low back pain, unspecified; M54.6 - Pain in thoracic spine Status: Acute (4) Limited mobility: Code(s): Z74.09 - Other reduced mobility Status: Acute Plan P this is an 88-year-old female with history of osteoporosis and thoracic compression fractures that was diagnosed in November presented with worsening back pain. She had no new injuries or falls. She is Found to have new lumbar and thoracic compression fractures. No evidence of cauda equinus syndrome. Neuro exam is nonfocal at the moment. Neurosurgery has been consulted and appreciate their recommendations. Recommends a TLSO brace for comfort and PT OT evaluation. Outpatient pain management evaluation for kyphoplasty if ongoing pain. She also follows regularly with Neurosurgery TLSO brace ordered and in place. Physical therapy ordered CT thoracic and lumbar spine on admission showed subacute burst fracture of 11 T12 and L3 which were new as compared to CT done on 12/30/2023. Pain controlled with [place] p.r.n.. History of osteoporosis was on Fosamax at some point. May benefit from going to bone health clinic. Continue calcium and vitamin-D supplementation Hypertension DVT prophylaxis Lovenox Do not resuscitate Disposition likely need rehab. Await PT OT recommendation and care coordination consultation. Subjective Date/time seen: 03/27/24 09:45 Interval history: No overnight events. Neuro surgical consultation noted reviewed. Appreciate their recommendations. Worked with therapy and pain is better Review of Systems Review of Systems: All systems reviewed & are unremarkable except as noted in HPI and below Exam Narrative: GENERAL: Elderly, frail, non-toxic, in no acute distress. HEAD: Normocephalic, atraumatic. RESPIRATORY: Airway patent, respirations nonlabored. Clear to auscultation bilaterally, no rales, rhonchi, wheezing. CARDIOVASCULAR: Regular rate and rhythm without murmurs, rubs, or gallops. ABDOMINAL: Soft, nontender, nondistended. Normoactive BS. MUSCULOSKELETAL: Moves all extremities. No gross deformities. SKIN: Warm, dry, normal color. NEURO: A&O X3. Speech clear. PSYCHIATRIC: Appropriate mood and affect. Normal interaction Objective Data Vital Signs Vital Signs: Vital Signs - 24 hr 03/26/24 15:13 03/26/24 20:00 03/26/24 20:00 Temperature 98.6 F 99.1 F Pulse Rate 85 76 76 Respiratory Rate 16 16 16 Blood Pressure 128/74 157/85 H Pulse Oximetry 95 96 96 Oxygen Delivery Room Air 03/27/24 06:00 Temperature 98.6 F Pulse Rate 81 Respiratory Rate 16 Blood Pressure 134/70 Pulse Oximetry 95 Oxygen Delivery Intake/Output Intake/Output: Intake & Output 03/24/24 03/25/24 03/26/24 03/27/24 23:59 23:59 23:59 23:59 Intake Total 618 1550 1440 980 Output Total 300 975 600 Balance 618 1250 465 380 Meds/Results Medications: Active Medications
[2024-03-27 14:00] VITALS: BP 142/85; PULSE 70; RESP 18; TEMP 36.3; O2SAT 96
[2024-03-27 21:28] VITALS: BP 163/81; PULSE 83; RESP 16; TEMP 36.6; O2SAT 92
[2024-03-28] MEDS: HYDROcodone/acetaminophen (*CRX) 5-325 MG TABLET 1 TAB PO ×4 (01:46→21:41)
[2024-03-28 05:37] VITALS: BP 120/54; PULSE 73; RESP 16; TEMP 35.8; O2SAT 94
[2024-03-28] MEDS: lisinopriL 20 MG TABLET PO (09:41)
[2024-03-28] MEDS: VITAMIN B CMPLX/VIT C/FOLIC AC 1 CAPSULE 1 CAP PO (09:41)
[2024-03-28] MEDS: CALCIUM CARBONATE (TUMS) 500 MG (200 MG ELEMENTAL) 400 MG BY MOUTH (09:41)
[2024-03-28] MEDS: FUROSEMIDE 20 MG TABLET PO (09:41)
[2024-03-28] MEDS: THERAPEUTIC MULTIVITAMINS/MINERALS TAB (*BKC) 1 TABLET PO (09:41)
[2024-03-28] MEDS: ASCORBIC ACID 500 MG TABLET PO (09:41)
[2024-03-28] MEDS: CHOLECALCIFEROL 1,000 UNITS TABLET 1000 UNITS PO (09:41)
[2024-03-28] MEDS: polyethylene glycoL 3350 17 GM POWD.PACK PO (09:42)
--- NOTE | 2024-03-28 13:37 | PM.IMPN ---
Progress Note: A&P Assessment and Plan (1) Lumbar compression fracture: Qualifiers: Encounter type: subsequent encounter Fracture healing: with routine healing Lumbar vertebra fracture level: unspecified lumbar vertebra Qualified Code(s): S32.000D - Wedge compression fracture of unspecified lumbar vertebra, subsequent encounter for fracture with routine healing Code(s): S32.000A - Wedge compression fracture of unspecified lumbar vertebra, initial encounter for closed fracture Status: Acute (2) Thoracic compression fracture: Qualifiers: Encounter type: subsequent encounter Fracture healing: with routine healing Thoracic vertebra fracture level: unspecified thoracic vertebra Qualified Code(s): S22.000D - Wedge compression fracture of unspecified thoracic vertebra, subsequent encounter for fracture with routine healing Code(s): S22.000A - Wedge compression fracture of unspecified thoracic vertebra, initial encounter for closed fracture Status: Acute (3) Back pain of thoracolumbar region: Code(s): M54.50 - Low back pain, unspecified; M54.6 - Pain in thoracic spine Status: Acute (4) Limited mobility: Code(s): Z74.09 - Other reduced mobility Status: Acute Plan P this is an 88-year-old female with history of osteoporosis and thoracic compression fractures that was diagnosed in November presented with worsening back pain. She had no new injuries or falls. She is Found to have new lumbar and thoracic compression fractures. No evidence of cauda equinus syndrome. Neuro exam is nonfocal at the moment. Neurosurgery has been consulted and appreciate their recommendations. Recommends a TLSO brace for comfort and PT OT evaluation. Outpatient pain management evaluation for kyphoplasty if ongoing pain. She also follows regularly with Neurosurgery TLSO brace ordered and in place. Physical therapy ordered CT thoracic and lumbar spine on admission showed subacute burst fracture of 11 T12 and L3 which were new as compared to CT done on 12/30/2023. Pain controlled with [place] p.r.n[facility] History of osteoporosis was on Fosamax at some point. May benefit from going to bone health clinic. Continue calcium and vitamin-D supplementation Hypertension DVT prophylaxis Lovenox Do not resuscitate Disposition likely need rehab. Await PT OT recommendation and care coordination consultation. Subjective Date/time seen: 03/28/24 13:37 Interval history: No overnight events. Pain is controlled. No new complaints. Awaiting placement. Discussed with care coordination Review of Systems Review of Systems: All systems reviewed & are unremarkable except as noted in HPI and below Exam Narrative: GENERAL: Elderly, frail, non-toxic, in no acute distress. HEAD: Normocephalic, atraumatic. RESPIRATORY: Airway patent, respirations nonlabored. Clear to auscultation bilaterally, no rales, rhonchi, wheezing. CARDIOVASCULAR: Regular rate and rhythm without murmurs, rubs, or gallops. ABDOMINAL: Soft, nontender, nondistended. Normoactive BS. MUSCULOSKELETAL: Moves all extremities. No gross deformities. SKIN: Warm, dry, normal color. NEURO: A&O X3. Speech clear. PSYCHIATRIC: Appropriate mood and affect. Normal interaction Objective Data Vital Signs Vital Signs: Vital Signs - 24 hr 03/27/24 14:00 03/27/24 21:28 03/27/24 20:00 Temperature 97.4 F L 97.9 F Pulse Rate 70 83 Respiratory Rate 18 16 Blood Pressure 142/85 H 163/81 H Pulse Oximetry 96 92 Oxygen Delivery Room Air 03/28/24 05:37 Temperature 96.4 F L Pulse Rate 73 Respiratory Rate 16 Blood Pressure 120/54 L Pulse Oximetry 94 Oxygen Delivery Intake/Output Intake/Output: Intake & Output 03/25/24 03/26/24 03/27/24 03/28/24 23:59 23:59 23:59 23:59 Intake Total 1550 1440 1110 240 Output Total 071 509 2120 300 Balance 1250 465 -500 -60 Meds/Results Medications: Active Medications Generic Name
[2024-03-28 14:00] VITALS: BP 140/84; PULSE 70; RESP 18; TEMP 36.4; O2SAT 95
[2024-03-28] MEDS: IBUPROFEN 400 MG TABLET PO (18:42)
[2024-03-28 20:00] VITALS: O2SAT 95
[2024-03-28 21:32] VITALS: BP 142/94; PULSE 84; RESP 18; TEMP 36.8; O2SAT 95
[2024-03-28] MEDS: methocarbamoL 500 MG TABLET PO (21:41)
[2024-03-29] MEDS: HYDROcodone/acetaminophen (*CRX) 5-325 MG TABLET 1 TAB PO (02:15)
[2024-03-29 06:00] VITALS: BP 168/91; PULSE 81; RESP 18; TEMP 36.8; O2SAT 97
[2024-03-29 08:54] LABS: Basophils Absolute Auto 0.1 K/mm3 (0.0-0.1); Basophils Percent Auto 0.8 % (0.2-1.2); Eosinophils Absolute Auto 0.3 K/mm3 (0-0.3); Eosinophils Percent Auto 4.1 % (0-4.4); Hematocrit 35.5 % (37.0-47.0); Hemoglobin 11.4 g/dL (12.0-15.0); Immature Granulocyte Absolute 0.05 K/mm3 (0.00-0.031); Immature Granulocyte Percent A 0.8 % (0-0.5); Lymphocytes Absolute Auto 1.34 K/mm3 (0.9-3.2); Lymphocytes Percent Auto 21.2 % (18.3-44.2); Mean Corpuscular HGB Conc 32.1 g/dl (32-36); Mean Corpuscular Hemoglobin 29.4 pg (26-34); Mean Corpuscular Volume 91.5 fl (80-100); Mean Platelet Volume 8.2 fl (7.4-10.4); Monocytes Absolute Auto 0.7 K/mm3 (0.1-0.6); Monocytes Percent Auto 10.5 % (2.6-8.5); Neutrophils Percent Auto 62.6 % (45.5-73.1); Platelet Count Result 280 k/mm3 (150-375); Red Blood Count 3.88 M/mm3 (4.2-5.4); Red Cell Distribution Width 12.4 % (11.5-14.5); White Blood Count 6.3 K/mm3 (4.5-10.0)
[2024-03-29 09:02] LABS: Alanine Aminotransferase 20 U/L (6-35); Albumin Level 3.9 g/dL (3.5-5.1); Alkaline Phosphatase 98 U/L (38-126); Anion Gap 5 mmol/L (4-12); Aspartate Amino Transferase 30 U/L (14-36); Bilirubin,Total 0.4 mg/dL (0.2-1.3); Blood Urea Nitrogen 23 mg/dL (7-17); Calcium 9.3 mg/dL (8.4-10.2); Carbon Dioxide 33 mmol/L (22-30); Chloride 93 mmol/L (98-107); Estimated Glomerular Filt Rate 59; Glucose 94 mg/dL (65-110); Sodium 131 mmol/L (137-145)
[2024-03-29] MEDS: ASCORBIC ACID 500 MG TABLET PO (10:07)
[2024-03-29] MEDS: VITAMIN B CMPLX/VIT C/FOLIC AC 1 CAPSULE 1 CAP PO (10:08)
[2024-03-29] MEDS: CHOLECALCIFEROL 1,000 UNITS TABLET 1000 UNITS PO (10:08)
[2024-03-29] MEDS: lisinopriL 20 MG TABLET PO (10:08)
[2024-03-29] MEDS: FUROSEMIDE 20 MG TABLET PO (10:08)
[2024-03-29] MEDS: polyethylene glycoL 3350 17 GM POWD.PACK PO (10:08)
[2024-03-29] MEDS: CALCIUM CARBONATE (TUMS) 500 MG (200 MG ELEMENTAL) 400 MG BY MOUTH (10:08)
[2024-03-29] MEDS: THERAPEUTIC MULTIVITAMINS/MINERALS TAB (*BKC) 1 TABLET PO (10:09)
--- NOTE | 2024-03-29 12:58 | PM.DS ---
DS: Admitting Diagnosis Discharge Date 03/29/2024 Admitting Diagnosis Back pain DS: Discharge Diagnosis Discharge Diagnosis (1) Lumbar compression fracture: Qualifiers: Encounter type: subsequent encounter Fracture healing: with routine healing Lumbar vertebra fracture level: unspecified lumbar vertebra Qualified Code(s): S32.000D - Wedge compression fracture of unspecified lumbar vertebra, subsequent encounter for fracture with routine healing Code(s): S32.000A - Wedge compression fracture of unspecified lumbar vertebra, initial encounter for closed fracture Status: Acute (2) Thoracic compression fracture: Qualifiers: Encounter type: subsequent encounter Fracture healing: with routine healing Thoracic vertebra fracture level: unspecified thoracic vertebra Qualified Code(s): S22.000D - Wedge compression fracture of unspecified thoracic vertebra, subsequent encounter for fracture with routine healing Code(s): S22.000A - Wedge compression fracture of unspecified thoracic vertebra, initial encounter for closed fracture Status: Acute (3) Back pain of thoracolumbar region: Code(s): M54.50 - Low back pain, unspecified; M54.6 - Pain in thoracic spine Status: Acute (4) Limited mobility: Code(s): Z74.09 - Other reduced mobility Status: Acute DS: Summary Hospital Course Hospital Course: This is an 88-year-old female with history of osteoporosis and thoracic compression fractures that was diagnosed in November presented with worsening back pain. She had no new injuries or falls. She is Found to have new lumbar and thoracic compression fractures. No evidence of cauda equinus syndrome. Neuro exam is nonfocal at the moment. Neurosurgery has been consulted and appreciate their recommendations. Recommends a TLSO brace for comfort and PT OT evaluation. Outpatient pain management evaluation for kyphoplasty if ongoing pain. She also follows regularly with Neurosurgery TLSO brace ordered and in place. Physical therapy evaluated. She will need rehabilitation. CT thoracic and lumbar spine on admission showed subacute burst fracture of 11 T12 and L3 which were new as compared to CT done on 12/30/2023. Pain controlled with [place] p.r.n[facility] History of osteoporosis was on Fosamax at some point. She will benefit from going to bone health clinic. Continue calcium and vitamin-D supplementation Hypertension DVT prophylaxis Lovenox Do not resuscitate Disposition likely need rehab. Care coordination consulted for SNF placement Time Spent with Patient Time attestation: Total time spent providing and/or coordinating discharge services: 35 minutes Exam Narrative: GENERAL: Elderly, frail, non-toxic, in no acute distress. HEAD: Normocephalic, atraumatic. RESPIRATORY: Airway patent, respirations nonlabored. Clear to auscultation bilaterally, no rales, rhonchi, wheezing. CARDIOVASCULAR: Regular rate and rhythm without murmurs, rubs, or gallops. ABDOMINAL: Soft, nontender, nondistended. Normoactive BS. MUSCULOSKELETAL: Moves all extremities. No gross deformities. SKIN: Warm, dry, normal color. NEURO: A&O X3. Speech clear. PSYCHIATRIC: Appropriate mood and affect. Normal interaction DS: Data Data Completed and Pending Labs on day of discharge: Labs from last 24 hours 03/29/24 08:20 WBC 6.3 RBC 3.88 L Hgb 11.4 L Hct 35.5 L MCV 91.5 MCH 29.4 MCHC 32.1 RDW 12.4 Plt Count 280 MPV 8.2 Immature Gran % (Auto) 0.8 H Neut % (Auto) 62.6 Lymph % (Auto) 21.2 Wilkes % (Auto) 10.5 H Eos % (Auto) 4.1 Baso % (Auto) 0.8 Lymph # (Auto) 1.34 Wilkes # (Auto) 0.7 H Eos # (Auto) 0.3 Baso # (Auto) 0.1 Abs Immat Gran (auto) 0.05 H Absolute Neuts (auto) 4.0 Absolute Nucleated RBC 0.000 Nucleated RBC % 0.0 Sodium 131 L Potassium 4.0 Chloride 93 L Carbon Dioxide 33 H Anion Gap 5 BUN 23 H Creatinine 0.90 Estim Creat Clear Calc Not Reportable E
[2024-03-29 14:00] VITALS: BP 156/74; PULSE 96; RESP 16; TEMP 36.7; O2SAT 95
== END 2024-03-29 15:50 | DRG 552 ==
LOC: ANHED 13:00 → ANH3MEDSUR 13:20
PROVIDERS: Admitting Provider General Practice; Emergency Provider Physician Assistant; PCP Nurse Practitioner Family; Visit Provider Internal Medicine
DX: S22.081A Stable burst fracture of T11-T12 vertebra, initial encounter for closed fracture (principal); S32.031A Stable burst fracture of third lumbar vertebra, initial encounter for closed fracture; M81.0 Age-related osteoporosis without current pathological fracture; I10 Essential (primary) hypertension; E78.5 Hyperlipidemia, unspecified; M47.815 Spondylosis without myelopathy or radiculopathy, thoracolumbar region; Z66 Do not resuscitate; Z85.42 Personal history of malignant neoplasm of other parts of uterus; Z90.49 Acquired absence of other specified parts of digestive tract; X58.XXXA Exposure to other specified factors, initial encounter
CPT/HCPCS: 36415; 72128; 72131; 80053; 81003; 85025; 97110; 97116; 97162; 97165; 97530; 97535; 99285; A9270; G0378